=== PATIENT | male | born 1945 | race Caucasian/White ===

== ENCOUNTER 2017-01-10 09:10 | Inpatient (IN) | payer OTHER, MEDICAID ==
[~2017-01-10] VITALS: Ht 165.1 cm; Wt 80.0 kg
[2017-01-10] MEDS ORDERED: ONDANSETRON 4 MG INJ IV STA (09:59)
[2017-01-10] MEDS ORDERED: HYDROmorphONE 1 MG/ML SYG IV STA (09:59)
[2017-01-10 10:58] LABS: BASOPHILS % 0.1 % (0.0-2.0); EOSINOPHILS # 0.1 10^3/ul (0.0-0.5); EOSINOPHILS % 1.3 % (0.0-7.0); HEMATOCRIT 49.1 % (42.0-52.0); HEMOGLOBIN 15.9 g/dl (14.0-18.0); LYMPHOCYTES # 1.3 10^3/ul (0.8-2.9); MEAN CORPUSCULAR HEMOGLOBIN 26.7 pg (29.0-33.0); MEAN CORPUSCULAR HGB CONC 32.4 g/dl (32.0-37.0); MEAN CORPUSCULAR VOLUME 82.4 fl (82.0-101.0); MEAN PLATELET VOLUME 11.6 fl (7.4-10.4); MONOCYTE # 0.4 10^3/ul (0.3-0.9); MONOCYTES % 5.7 % (0.0-11.0); NEUTROPHIL # 4.9 10^3/ul (1.6-7.5); NEUTROPHILS % 73.8 % (39.0-77.0); PLATELET COUNT 200 10^3/UL (140-415); RED BLOOD COUNT 5.96 10^6/ul (4.70-6.10); RED CELL DISTRIBUTION WIDTH 14.2 % (11.5-14.5); WHITE BLOOD COUNT 6.7 10^3/ul (4.8-10.8)
[2017-01-10 11:24] LABS: ALBUMIN/GLOBULIN RATIO 1.08; BILIRUBIN,INDIRECT 0.4 mg/dl (0-1.1); BILIRUBIN,TOTAL 0.4 mg/dl (0.2-1.3); CALCIUM 8.9 mg/dl (8.4-10.2); CREATININE 0.79 mg/dl (0.61-1.24); POTASSIUM 4.2 mmol/L (3.5-5.1); TOTAL PROTEIN 7.7 g/dl (6.1-8.1)
[2017-01-10] MEDS ORDERED: SOD CHLORIDE 0.9% 100 ML ONE (12:02)
[2017-01-10] MEDS ORDERED: IOHEXOL 300MG/ML 150 ML BTL ONE (12:02)
--- NOTE | 2017-01-10 12:44 | RADRPT ---
PROCEDURE: CT Abdomen and Pelvis with contrast. CLINICAL INDICATION: Abdominal pain. TECHNIQUE: CT scan of the abdomen and pelvis with contrast was performed on a multi-detector high- resolution CT scanner. The patient was scanned following the uncomplicated intravenous administrati on of 100 cc of Omnipaque 300. Coronal and sagittal reformatted images were obtained from the axial source images. Images were reviewed on a high-resolution PACS workstation. The total exam CTDI equa ls 14.48 mGy and the total exam DLP equals 966.58 mGy-cm. One or more of the following dose reduction techniques were used: Automated exposure control. Adjustment of the mA and/or kV according to patient size. Use of iterative reconstruction technique. COMPARISON: None. FINDINGS: CT abdomen: The lung bases are remarkable for subsegmental atelectasis. The heart size is normal, without peric ardial thickening or effusion. The liver is normal in size and density without focal mass or intrah epatic biliary dilatation. The spleen is normal in size and homogeneous in density. The stomach is partially collapsed, but is grossly unremarkable. The pancreas as visualized is normal. The gallb ladder is remarkable for sub centimeter gallstones. There is no evidence for biliary dilatation. T he adrenal glands are symmetric and normal. The kidneys are symmetrically unremarkable as well. No renal calculus or obstructive uropathy or mass lesion is seen. There is approximately 2 cm exophyti c cortical cyst in the lower pole right kidney. The aorta is of normal caliber. Aortic vascular calcifications are present. There is no retroperit kennedy lymphadenopathy. The rohit hepatis region is clear. There is a small hiatal hernia. There is a tiny fat containing periumbilical hernia. There is abnormal wall thickening of the descending colon and proximal sigmoid colon with surroundin g inflammatory changes in keeping with colitis. Multiple foci of free air is seen in the left hemiab domen concerning for perforation. There is a left anterior abdominal wall hernia containing multipl e loops of small bowel with no evidence of bowel obstruction. There is small intraperitoneal free f luid. There are postsurgical changes of prior sigmoidectomy with anastomosis. CT pelvis: The small bowel loops situated within the pelvis are unremarkable. The pelvic organs are normal. T he pelvic sidewalls and inguinal regions are clear. No mass, lymphadenopathy, or free fluid is se en. No acute inflammation is seen. The bladder is normal. The surrounding osseous structures are u nremarkable. No osteolytic or osteoblastic lesion is detected. A call report was made to CONTINUOUS TOWEL ROLLERONEL Berg at 01/10/2017 12:36:18 PM following completion of the examinati on. IMPRESSION: 1. Abnormal wall thickening of the descending and proximal sigmoid colon with surrounding inflammato ry changes in keeping with colitis. Multiple foci of gas are seen in the left hemiabdomen concernin g for perforation. Sigmoid anastomosis. Inflammatory changes are also seen around the small bowel l oops in the left hemiabdomen. 2. Left anterior abdominal wall hernia containing multiple loops of small bowel without evidence of obstruction. 3. Small volume intraperitoneal free fluid. 4. Fat containing tiny periumbilical hernia. 5. Small hiatal hernia. 6. Cholelithiasis without evidence of acute cholecystitis. 7. Scattered aortoiliac atherosclerosis. 8. Fat containing right inguinal hernia. RPTAT: BB .Phoebe Madrigal MD, MD Date Time Electronically viewed and signed by .Phoebe Madrigal MD, on 01/10/2017 12:44 .O/
[2017-01-10] MEDS ORDERED: ERTAPENEM SODIUM 1 GM in SOD CHLORIDE 0.9% 100 ML IVPB ONE (13:00)
--- NOTE | 2017-01-10 13:08 | ERA ---
ER Documentation Chief Complaint Date/Time DATE: 01/10/17 TIME: 13:05 Chief Complaint ABD PAIN PERIUMBILICAL SINCE THIS MORNING. NO N/V. CONSTIPATED PER PT HPI This is a 71-year-old man who has a history of chronic abdominal pain and constipation and diabetes. 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 He does not know what they did remove lots of his large intestine. Patient stated that yesterday he was having a bowel movement in the evening and he said he was pushing his stool out and he felt a pop in his left abdomen. Since that time has had progressive worsening of pain described as sharp and constant in the left lower quadrant he has had no vomiting diarrhea no bloody stool no fever no hematuria or dysuria ROS All systems reviewed and are negative except as per history of present illness. Medications Home Meds No Active Prescriptions or Reported Meds Allergies Allergies: Coded Allergies: No Known Allergy (Unverified , 01/10/17) PMhx/Soc Medical and Surgical Hx: Unable to obtain Hx Alcohol Use: Yes Hx Substance Use: No Hx Tobacco Use: No Smoking Status: Never smoker FmHx Family History: No coronary disease Physical Exam Vitals Vital Signs Date Time Temp Pulse Resp B/P Pulse Ox O2 Delivery O2 Flow Rate FiO2 01/10/17 11:19 98.1 95 20 120/68 94 Nasal Cannula 2.0 01/10/17 09:15 98.1 62 20 146/87 99 Physical Exam Const: Well-developed, well-nourished Head: Atraumatic, normocephalic Eyes: Normal Conjunctiva, PERRLA, EOMI, normal sclera, no nystagmus ENT: Normal External Ears, Nose and Mouth, moist mucus membranes. Neck: Full range of motion. No meningismus, no lymphadenopathy. Resp: Clear to auscultation bilaterally, no wheezing, rhonchi, rales Cardio: Regular rate and rhythm, no murmurs, S1 S2 present Abd: Soft, diffuse moderate tenderness with severe tenderness in the left lower abdomen and periumbilical region, non distended. Normal bowel sounds , positive guarding with localized left rebound, no pulsitile abdominal masses or bruits Skin: No petechiae or rashes, no ecchymosis , no maculopapular rash Back: No midline or flank tenderness Ext: No cyanosis, or edema, FROM x 4, normal inspection, neurovascularly intact x 4 Neur: Awake and alert, STR 5/5 x 4, sensation intact x 4, no focal findings, cerebellum intact Psych: Normal Mood and Affect Result Diagram: 01/10/17 1000 01/10/17 1000 Results 24 hrs Laboratory Tests Test 01/10/17 10:00 White Blood Count 6.710^3/ul Red Blood Count 5.9610^6/ul Hemoglobin 15.9g/dl Hematocrit 49.1% Mean Corpuscular Volume 82.4fl Mean Corpuscular Hemoglobin 26.7pg Mean Corpuscular Hemoglobin Concent 32.4g/dl Red Cell Distribution Width 14.2% Platelet Count 87124^3/UL Mean Platelet Volume 11.6fl Neutrophils % 73.8% Lymphocytes % 19.0% Monocytes % 5.7% Eosinophils % 1.3% Basophils % 0.1% Nucleated Red Blood Cells % 0.0/100WBC Neutrophils # 4.910^3/ul Lymphocytes # 1.310^3/ul Monocytes # 0.410^3/ul Eosinophils # 0.110^3/ul Basophils # 0.010^3/ul Nucleated Red Blood Cells # 0.010^3/ul Sodium Level 145mmol/L Potassium Level 4.2mmol/L Chloride Level 100mmol/L Carbon Dioxide Level 27mmol/L Anion Gap 22 Blood Urea Nitrogen 11mg/dl Creatinine 0.79mg/dl Glucose Level 100mg/dl Calcium Level 8.9mg/dl Total Bilirubin 0.4mg/dl Direct Bilirubin 0.00mg/dl Indirect Bilirubin 0.4mg/dl Aspartate Amino Transf (AST/SGOT) 28IU/L Alanine Aminotransferase (ALT/SGPT) 33IU/L Alkaline Phosphatase 82IU/L Total Protein 7.7g/dl Albumin 4.0g/dl Globulin 3.70g/dl Albumin/Globulin Ratio 1.08 Lipase 65U/L Current Medications Medications (Trade) Dose Ordered Sig/Gianni Route PRN Reason Start Time Stop Time Status Last Admin Dose Admin Hydromorphone HCl (Dilaudid) 1 mg ONCE STAT IV 01/10/17 09:59 01/10/17 10:02 DC 01/10/17 10:51 Ondansetron HCl (Zofran Inj) 4 mg ONCE STAT IV 01/10/17 09:59 01/10/17 10:02 DC 01/10/17 10:51 IV Flush 10 ml 10 ml STK-MED ONCE .ROUTE 01/10/17 12:02 01/10/17 12:03 DC 01/10/17 12:34 Sodium Chloride (NS) 100 ml @ ud STK-MED ONCE .ROUTE 01/10/17 12:02 01/10/17 12:03 DC 01/10/17 12:34 Iohexol 150 ml 150 ml STK-MED ONCE .ROUTE 01/10/17 12:02 01/10/17 12:03 DC 01/10/17 12:34 Ertapenem/Sodium Chloride (Invanz/NS) 100 ml @ 200 mls/hr ONCE ONCE IVPB 01/10/17 13:00 01/10/17 13:29 Procedures/MDM PROCEDURE: CT Abdomen and Pelvis with contrast. CLINICAL INDICATION: Abdominal pain. TECHNIQUE: CT scan of the abdomen and pelvis with contrast was performed on a multi-detector high-resolution CT scanner. The patient was scanned following the uncomplicated intravenous administration of 100 cc of Omnipaque 300. Coronal and sagittal reformatted images were obtained from the axial source images. Images were reviewed on a high-resolution PACS workstation. The total exam CTDI equals 14.48 mGy and the total exam DLP equals 966.58 mGy-cm. One or more of the following dose reduction techniques were used: Automated exposure control. Adjustment of the mA and/or kV according to patient size. Use of iterative reconstruction technique. COMPARISON: None. FINDINGS: CT abdomen: The lung bases are remarkable for subsegmental atelectasis. The heart size is normal, without pericardial thickening or effusion. The liver is normal in size and density without focal mass or intrahepatic biliary dilatation. The spleen is normal in size and homogeneous in density. The stomach is partially collapsed, but is grossly unremarkable. The pancreas as visualized is normal. The gallbladder is remarkable for sub centimeter gallstones. There is no evidence for biliary dilatation. The adrenal glands are symmetric and normal. The kidneys are symmetrically unremarkable as well. No renal calculus or obstructive uropathy or mass lesion is seen. There is approximately 2 cm exophytic cortical cyst in the lower pole right kidney. The aorta is of normal caliber. Aortic vascular calcifications are present. There is no retroperitoneal lymphadenopathy. The rohit hepatis region is clear. There is a small hiatal hernia. There is a tiny fat containing periumbilical hernia. There is abnormal wall thickening of the descending colon and proximal sigmoid colon with surrounding inflammatory changes in keeping with colitis. Multiple foci of free air is seen in the left hemiabdomen concerning for perforation. There is a left anterior abdominal wall hernia containing multiple loops of small bowel with no evidence of bowel obstruction. There is small intraperitoneal free fluid. There are postsurgical changes of prior sigmoidectomy with anastomosis. CT pelvis: The small bowel loops situated within the pelvis are unremarkable. The pelvic organs are normal. The pelvic sidewalls and inguinal regions are clear. No mass, lymphadenopathy, or free fluid is seen. No acute inflammation is seen. The bladder is normal. The surrounding osseous structures are unremarkable. No osteolytic or osteoblastic lesion is detected. A call report was made to FILTR[employer] OPERATORONEL Berg at 01/10/2017 12:36:18 PM following completion of the examination. IMPRESSION: 1. Abnormal wall thickening of the descending and proximal sigmoid colon with surrounding inflammatory changes in keeping with colitis. Multiple foci of gas are seen in the left hemiabdomen concerning for perforation. Sigmoid anastomosis. Inflammatory changes are also seen around the small bowel loops in the left hemiabdomen. 2. Left anterior abdominal wall hernia containing multiple loops of small bowel without evidence of obstruction. 3. Small volume intraperitoneal free fluid. 4. Fat containing tiny periumbilical hernia. 5. Small hiatal hernia. 6. Cholelithiasis without evidence of acute cholecystitis. 7. Scattered aortoiliac atherosclerosis. 8. Fat containing right inguinal hernia. RPTAT: BB .Phoebe Madrigal MD, Date Time Electronically viewed and signed by .Phoebe Madrigal MD, on 01/10/2017 12:44 .O/ CC: ANKIT SY DO Patient received 1 g of Invanz. I paged general surgery Dr. Saldivar for consultation. We will admit for diverticulitis with perforation Departure Diagnosis: Primary Impression: Bowel perforation Additional Impression: Diverticulitis Qualified Code: K57.20 - Diverticulitis of large intestine with perforation without bleeding Condition: ANKIT Rodriguez DO Jan 10, 2017 13:08
[2017-01-10] MEDS ORDERED: SOD CHLORIDE 0.9% 1,000 ML IV SCH (13:54)
[2017-01-10] MEDS ORDERED: ONDANSETRON 4 MG INJ IV PRN ×2 (14:00→15:00)
[2017-01-10] MEDS ORDERED: ACETAMINOPHEN 325 MG TAB PO PRN ×2 (14:00→15:00)
[2017-01-10] MEDS ORDERED: SOD CHLORIDE 0.9% 1,000 ML IV STA (14:11)
[2017-01-10 14:33] VITALS: TEMP 100.1
[2017-01-10] MEDS ORDERED: BISACODYL 10 MG SUPP PR PRN (15:00)
[2017-01-10] MEDS ORDERED: NACL 0.9% 3 ML SYG IV SCH (15:00)
[2017-01-10] MEDS ORDERED: ACETAMINOPHEN 650 MG SUPP PR PRN (15:00)
[2017-01-10] MEDS ORDERED: DOCUSATE SODIUM 100 MG CAP PO PRN (15:00)
[2017-01-10] MEDS ORDERED: MAGNESIUM HYDROXIDE 30ML CUP PO PRN (15:00)
--- NOTE | 2017-01-10 15:05 | HP ---
Date/Time of Note Date/Time of Note DATE: 01/10/17 TIME: 15:04 Assessment/Plan VTE Prophylaxis VTE Prophylaxis Intervention: SCD's Assessment/Plan Assessment/Plan 71-year-old male with: 1. Colitis, descending and proximal sigmoid colon, suspicion for left hemiabdomen perforated viscus. Patient still with severe pain. N.p.o., lactic acid pending, IV fluids, IV antibiotics. Surgical consult already requested in ER with Dr. Saldivar. Monitor closely, in case the patient needs surgical intervention, EKG and chest x-ray has been ordered. Patient denies any previous history of coronary artery disease, pulmonary disease, kidney disease. None of his present symptoms are indicative of any of those chronic illnesses. He may proceed with surgical intervention if needed 2. Hyperlipidemia, per history, check fasting lipid panel in a.m. Prophylaxis: SCDs for DVT prophylaxis, Protonix for GI prophylaxis. Disposition: IV antibiotics, n.p.o., awaiting surgical evaluation HPI/ROS Admit Date/Time Admit Date/Time Jan 10, 2017 at 13:57 Hx of Present Illness Chief complaint: Left lower quadrant abdominal pain History of presenting illness: This is a 71-year-old male who lives alone, history of hypercholesterolemia, previous abdominal surgery due to possible perforated viscus approximately 20 years ago, chronic constipation who presented to the emergency department with acute onset of left lower quadrant abdominal pain. Patient reports that he is usually constipated he was going to the bathroom early this morning at 4 AM, he was pushing to have a bowel movement apparently and he felt a "pop". Afterwards he started having severe left lower quadrant abdominal pain, at 9 AM he could not take it anymore he called the ambulance and came to the emergency department. Laboratory data were within normal but CAT scan of the abdomen and pelvis is showing significant colitis in the descending colon and proximal sigmoid colon and concerns for perforation in the left hemiabdomen. Patient is hemodynamically stable, lactic acid is pending. Patient was given 1 dose of ertapenem in ER, admitted to medical surgical bed with surgical consult pending. He is n.p.o., on IV fluids and IV antibiotics. ROS Constitutional: febrile Eyes: no complaints ENT: no complaints Respiratory: no complaints Cardiovascular: no complaints Gastrointestinal: constipation (Chronic), decreased appetite (Only eats once a day), pain (Left lower quadrant) Genitourinary: no complaints Musculoskeletal: no complaints Skin: no complaints Neurologic: no complaints Endocrine: no complaints Psychological: no complaints PMH/Family/Social Past Medical History Medical History: high cholesterol (Does not take medications) Past Surgical History Status post abdominal surgery, according to patient description secondary to perforated viscus, done approximately 20 years ago. Family History Significant Family History: no pertinent family hx Social History Alcohol Use: none (Patient quit 20 years ago, 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) Smoking Status: Never smoker Drug Use: none Exam/Review of Systems Vital Signs Vitals Vital Signs Date Time Temp Pulse Resp B/P Pulse Ox O2 Delivery O2 Flow Rate FiO2 01/10/17 14:33 100.1 100 20 132/74 91 Room Air 2.0 Exam Constitutional: alert, oriented, well developed Respiratory: clear to auscultation, normal air movement Cardiovascular: nl pulses, regular rate and rhythm Gastrointestinal: soft, tender (Left lower quadrant) Musculoskeletal: nl extremities to inspection, nl gait and stance Extremities: normal pulses, other (No edema, clubbing or cyanosis) Neurological: ACIDIZER WATER WELL II-XII intact, nl mental status, nl speech, nl strength Labs Result Diagram: 01/10/17 1000 01/10/17 1000 Medications Medications Current Medications Sodium Chloride (NS) 1,000 ml @ 125 mls/hr Q8H IV ; Start 01/10/17 at 14:44 Ondansetron HCl (Zofran Inj) 4 mg Q6H PRN IV NAUSEA AND/OR VOMITING; Start 04/18 at 15:00 Acetaminophen (Tylenol Tab) 650 mg Q6H PRN PO PAIN LEVEL 1-3 OR FEVER; Start at 15:00 Acetaminophen (Tylenol Supp) 650 mg Q6H PRN MS PAIN LEVEL 1-3 OR FEVER; Start 01/10/17 at 15:00 Morphine Sulfate (morphine) 2 mg Q4H PRN IV SEVERE PAIN LEVEL 7-10; Start 01/10 at 15:00 Docusate Sodium (Colace) 100 mg Q12H PRN PO CONSTIPATION; Start 01/10/17 at 15: 00 Magnesium Hydroxide (Milk Of Mag) 30 ml DAILY PRN PO CONSTIPATION; Start at 15:00 Bisacodyl (Dulcolax Supp) 10 mg DAILY PRN MS CONSTIPATION; Start 01/10/17 at 15 :00 Pantoprazole 40 mg 40 mg DAILY@06 IV ; Start 01/11/17 at 06:00 Meropenem/Sodium Chloride (Merrem 1 Gm/50 ml (Pmx)) 50 ml @ 100 mls/hr Q8 IVPB ; Start 01/10/17 at 22:00 Procedures Procedures PROCEDURE: CT Abdomen and Pelvis with contrast. CLINICAL INDICATION: Abdominal pain. TECHNIQUE: CT scan of the abdomen and pelvis with contrast was performed on a multi-detector high-resolution CT scanner. The patient was scanned following the uncomplicated intravenous administration of 100 cc of Omnipaque 300. Coronal and sagittal reformatted images were obtained from the axial source images. Images were reviewed on a high-resolution PACS workstation. The total exam CTDI equals 14.48 mGy and the total exam DLP equals 966.58 mGy-cm. One or more of the following dose reduction techniques were used: Automated exposure control. Adjustment of the mA and/or kV according to patient size. Use of iterative reconstruction technique. COMPARISON: None. FINDINGS: CT abdomen: The lung bases are remarkable for subsegmental atelectasis. The heart size is normal, without pericardial thickening or effusion. The liver is normal in size and density without focal mass or intrahepatic biliary dilatation. The spleen is normal in size and homogeneous in density. The stomach is partially collapsed, but is grossly unremarkable. The pancreas as visualized is normal. The gallbladder is remarkable for sub centimeter gallstones. There is no evidence for biliary dilatation. The adrenal glands are symmetric and normal. The kidneys are symmetrically unremarkable as well. No renal calculus or obstructive uropathy or mass lesion is seen. There is approximately 2 cm exophytic cortical cyst in the lower pole right kidney. The aorta is of normal caliber. Aortic vascular calcifications are present. There is no retroperitoneal lymphadenopathy. The rohit hepatis region is clear. There is a small hiatal hernia. There is a tiny fat containing periumbilical hernia. There is abnormal wall thickening of the descending colon and proximal sigmoid colon with surrounding inflammatory changes in keeping with colitis. Multiple foci of free air is seen in the left hemiabdomen concerning for perforation. There is a left anterior abdominal wall hernia containing multiple loops of small bowel with no evidence of bowel obstruction. There is small intraperitoneal free fluid. There are postsurgical changes of prior sigmoidectomy with anastomosis. CT pelvis: The small bowel loops situated within the pelvis are unremarkable. The pelvic organs are normal. The pelvic sidewalls and inguinal regions are clear. No mass, lymphadenopathy, or free fluid is seen. No acute inflammation is seen. The bladder is normal. The surrounding osseous structures are unremarkable. No osteolytic or osteoblastic lesion is detected. A call report was made to [employer] II THERM[facility] CUTTERONEL Berg at 01/10/2017 12:36:18 PM following completion of the examination. IMPRESSION: 1. Abnormal wall thickening of the descending and proximal sigmoid colon with surrounding inflammatory changes in keeping with colitis. Multiple foci of gas are seen in the left hemiabdomen concerning for perforation. Sigmoid anastomosis. Inflammatory changes are also seen around the small bowel loops in the left hemiabdomen. 2. Left anterior abdominal wall hernia containing multiple loops of small bowel without evidence of obstruction. 3. Small volume intraperitoneal free fluid. 4. Fat containing tiny periumbilical hernia. 5. Small hiatal hernia. 6. Cholelithiasis without evidence of acute cholecystitis. 7. Scattered aortoiliac atherosclerosis. 8. Fat containing right inguinal hernia. RPTAT: BB .Phoebe Madrigal MD, MD Date Time Electronically viewed and signed by .Phoebe Madrigal MD, on 01/10/2017 12:44 MÓNICA OLGUIN Jan 10, 2017 15:05
[2017-01-10 15:09] VITALS: BP 135/73; RESP 18
[2017-01-10 15:27] VITALS: Ht 165.1 cm; Wt 80.0 kg
[2017-01-10] MEDS: SOD CHLORIDE 0.9% 1,000 ML IV SCH ×2 (15:34→21:36)
[2017-01-10 15:50] LABS: INR 0.99; PARTIAL THROMBOPLASTIN TIME 28.6 Sec (25.0-35.0); PROTIME 13.1 Sec (12.2-14.2)
[2017-01-10] MEDS: PANTOPRAZOLE 40 MG INJ IV SCH (18:12)
--- NOTE | 2017-01-10 18:16 | CONS ---
Date/Time of Note Date/Time of Note DATE: 01/10/17 TIME: 17:56 Assessment/Plan Assessment/Plan Chief Complaint/Hosp Course 1. Abdominal pain: concern for perforated viscus: left hemiabdomen ; min temp, tachycardia; abdomen soft mod distended -close monitoring; at this point does not require emergent surgical intervention -iv abx 2. Constipation -optimize bowel regimen 3. Multiple Hernias: Left Lat abdominal wall, perimbulical, hiatal, Right inguinal: all without pain or discomfort -possible eventual surgical repair -monitor 4. Overweight -eventual weight loss Patient seen and examined in collaboration with Dr. Dave Saldivar. Thank you. Problems: Consultation Date/Type/Reason Admit Date/Time Jan 10, 2017 at 13:57 Date of Consultation: Jan 10, 2017 Type of Consultation: surgical Reason for Consultation Possible perforated viscus Referring Provider: MÓNICA OLGUIN of Present Illness Pavel Khan is a 71 yo man who presents to the ED with severe abdominal pain that began this morning. He has history of constipation, only having a bowel movement weekly. He recounts hearing a "pop" while attempting to have a bowel movement. The pain is more severe in his left lower quadrant but is also in his right lower quadrant. He denies nausea, vomiting, fevers, chills, sob, cough and cp. Ct abdomen showed abnormal wall thickening of the descending and proximal sigmoid colon with surrounding inflammatory changes in keeping with colitis. Multiple foci of gas are seen in the left hemiabdomen concerning for perforation. Surgical consult was called to evaluate. Eyes: No visual change ENT: No congestion, No sore throat Respiratory: No cough, No shortness of breath Cardiovascular: chest pain, No lightheadedness, No no complaints, No palpitations Gastrointestinal: constipation (Chronic), decreased appetite (Only eats once a day), pain (bilat lower quadrant worse on left) Genitourinary: No dysuria Musculoskeletal: no complaints, No back pain Skin: no complaints Neurologic: no complaints, No confusion, No dizziness Psychological: anxiety Past Medical History multiple hernia overweight Medical History: high cholesterol Past Surgical History open abdominal surgery (particulars unknown to patient) Family History Significant Family History: other (noncontributory) Social History Alcohol Use: none (Patient quit 20 years ago, 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) Smoking Status: Never smoker Drug Use: none Exam/Review of Systems Vital Signs Vitals Vital Signs Date Time Temp Pulse Resp B/P Pulse Ox O2 Delivery O2 Flow Rate FiO2 01/10/17 15:09 99.0 98 18 135/73 92 01/10/17 14:33 Room Air 2.0 Exam Constitutional: alert, oriented Psych: anxiety Head: atraumatic, normocephalic Eyes: nl lids, nl sclera ENMT: mucosa pink and moist, nl nasal mucosa & septum Neck: non-tender, supple Respiratory: normal air movement, No congested cough Cardiovascular: nl pulses, regular rate and rhythm Gastrointestinal: bowel sounds (hypoactive), distended (mod), other (multiple hernias (umbilical, left abdominal wall)), surgical scars, tender Genitourinary - Male: other Musculoskeletal: nl extremities to inspection Extremities: normal pulses, No edema Neurological: nl mental status, nl speech, nl strength Skin: No ecchymosis Results Result Diagram: 01/10/17 1000 01/10/17 1000 Results 24 hrs Laboratory Tests Test 01/10/17 10:00 01/10/17 13:40 01/10/17 15:51 White Blood Count 6.7 Red Blood Count 5.96 Hemoglobin 15.9 Hematocrit 49.1 Mean Corpuscular Volume 82.4 Mean Corpuscular Hemoglobin 26.7 L Mean Corpuscular Hemoglobin Concent 32.4 Red Cell Distribution Width 14.2 Platelet Count 200 Mean Platelet Volume 11.6 H Neutrophils % 73.8 Lymphocytes % 19.0 Monocytes % 5.7 Eosinophils % 1.3 Basophils % 0.1 Nucleated Red Blood Cells % 0.0 Neutrophils # 4.9 Lymphocytes # 1.3 Monocytes # 0.4 Eosinophils # 0.1 Basophils # 0.0 Nucleated Red Blood Cells # 0.0 Sodium Level 145 H Potassium Level 4.2 Chloride Level 100 Carbon Dioxide Level 27 Anion Gap 22 H Blood Urea Nitrogen 11 Creatinine 0.79 Glucose Level 100 Calcium Level 8.9 Total Bilirubin 0.4 Direct Bilirubin 0.00 Indirect Bilirubin 0.4 Aspartate Amino Transf (AST/SGOT) 28 Alanine Aminotransferase (ALT/SGPT) 33 Alkaline Phosphatase 82 Total Protein 7.7 Albumin 4.0 Globulin 3.70 H Albumin/Globulin Ratio 1.08 Lipase 65 Prothrombin Time 13.1 Prothrombin Time Ratio 1.0 INR International Normalized Ratio 0.99 Activated Partial Thromboplast Time 28.6 Lactic Acid Level 1.9 Medications Medications Current Medications Sodium Chloride (NS) 1,000 ml @ 125 mls/hr Q8H IV Last administered on t 15:34; Admin Dose 125 MLS/HR; Start 01/10/17 at 14:44 Ondansetron HCl (Zofran Inj) 4 mg Q6H PRN IV NAUSEA AND/OR VOMITING; Start 04/18 at 15:00 Acetaminophen (Tylenol Tab) 650 mg Q6H PRN PO PAIN LEVEL 1-3 OR FEVER; Start at 15:00 Acetaminophen (Tylenol Supp) 650 mg Q6H PRN [place] PAIN LEVEL 1-3 OR FEVER; Start 01/10/17 at 15:00 Morphine Sulfate (morphine) 2 mg Q4H PRN IV SEVERE PAIN LEVEL 7-10; Start 01/10 at 15:00 Docusate Sodium (Colace) 100 mg Q12H PRN PO CONSTIPATION; Start 01/10/17 at 15: 00 Magnesium Hydroxide (Milk Of Mag) 30 ml DAILY PRN PO CONSTIPATION; Start at 15:00 Bisacodyl 10 mg 10 mg DAILY PRN [place] CONSTIPATION; Start 01/10/17 at 15:00 Meropenem/Sodium Chloride (Merrem 1 Gm/50 ml (Pmx)) 50 ml @ 100 mls/hr Q8 IVPB ; Start 01/10/17 at 22:00 Pantoprazole (Protonix Iv) 40 mg BID@06,18 IV ; Start 01/10/17 at 18:00 ANNA CHANG NP Jan 10, 2017 18:07 Meropenem/Sodium Chloride (Merrem 1 Gm/50 ml (Pmx)) 50 ml @ 100 mls/hr Q8 IVPB ; Start 01/10/17 at 22:00 Pantoprazole (Protonix Iv) 40 mg BID@06,18 IV ; Start 01/10/17 at 18:00 ANNA CHANG NP Jan 10, 2017 18:07
--- NOTE | 2017-01-10 18:55 | RADRPT ---
PROCEDURE: XR Chest. CLINICAL INDICATION: Chest pain TECHNIQUE: Single frontal view of the chest was obtained COMPARISON: None FINDINGS: There are low lung volumes. The cardiac silhouette is mildly enlarged. There are atherosclerotic calcifications of the aorta. There is evidence of mild pulmonary vascular congestion. Ill-defined opacities at both lung bases which likely represents atelectasis and / or scarring. Inf ectious component cannot be completely excluded. No pneumothorax or significant pleural effusion is seen. There are degenerative changes of the visualized spine. IMPRESSION: 1. Ill-defined bibasilar opacities, likely representing atelectasis and / or scarring. An infectiou s component cannot be completely excluded, but is considered less likely. 2. Mild cardiomegaly. 3. Mild pulmonary vascular congestion. RPTAT: QQ Physician Kuldeep Date Time Electronically viewed and signed by Lm Graham Physician on 01/10/2017 18:55 JAYLYN/
[2017-01-10 20:02] VITALS: BP 127/63; RESP 22
[2017-01-10] MEDS: MEROPENEM 1 GM/50ML(PMX) 50 ML IVPB SCH (21:38)
[2017-01-11] MEDS: morphine 2 MG INJ IV PRN (02:51)
[2017-01-11 03:00] VITALS: BP 126/75; RESP 19
[2017-01-11] MEDS: PANTOPRAZOLE 40 MG INJ IV SCH ×2 (05:28→18:52)
[2017-01-11] MEDS: SOD CHLORIDE 0.9% 1,000 ML IV SCH ×3 (05:28→22:31)
[2017-01-11] MEDS: MEROPENEM 1 GM/50ML(PMX) 50 ML IVPB SCH ×3 (05:28→22:31)
[2017-01-11 05:54] LABS: ABNORMAL IP MESSAGE 1; BASOPHILS % 0.1 % (0.0-2.0); HEMATOCRIT 43.3 % (42.0-52.0); LYMPHOCYTES # 0.5 10^3/ul (0.8-2.9); LYMPHOCYTES % 7.1 % (15.0-51.0); MEAN CORPUSCULAR HGB CONC 32.3 g/dl (32.0-37.0); MEAN CORPUSCULAR VOLUME 80.5 fl (82.0-101.0); MONOCYTE # 0.6 10^3/ul (0.3-0.9); MONOCYTES % 7.4 % (0.0-11.0); NEUTROPHIL # 6.4 10^3/ul (1.6-7.5); NEUTROPHILS % 85.1 % (39.0-77.0); PLATELET COUNT 165 10^3/UL (140-415); RED BLOOD COUNT 5.38 10^6/ul (4.70-6.10); RED CELL DISTRIBUTION WIDTH 14.6 % (11.5-14.5); WHITE BLOOD COUNT 7.5 10^3/ul (4.8-10.8)
[2017-01-11 05:55] LABS: CHOL/HDL RATIO 3.5 RATIO
[2017-01-11 05:56] LABS: ALBUMIN 3.1 g/dl (3.3-4.9); ALBUMIN/GLOBULIN RATIO 1.06; BILIRUBIN,INDIRECT 1.2 mg/dl (0-1.1); BILIRUBIN,TOTAL 1.2 mg/dl (0.2-1.3); CALCIUM 7.9 mg/dl (8.4-10.2); CREATININE 0.81 mg/dl (0.61-1.24); MAGNESIUM 1.5 mg/dl (1.7-2.5); PHOSPHORUS 2.1 mg/dl (2.5-4.9); POTASSIUM 3.5 mmol/L (3.5-5.1)
[2017-01-11] MEDS ORDERED: PANTOPRAZOLE 40 MG INJ IV SCH (06:00)
[2017-01-11 07:58] VITALS: BP 103/56; RESP 20
--- NOTE | 2017-01-11 11:17 | RADRPT ---
Vent Rate: 99 bpm RR Interval: 0 msec AL Interval: 176 msec QRS Duration: 82 msec QT Interval: 338 msec QTC Interval: 433 msec P-R-T [place]: 71 - 67 - 59 degrees Normal sinus rhythm Normal ECG Electronically Signed By: Patrick Henson [id number]
[2017-01-11 11:32] LABS: METAMYELOCYTES %M 1 % (0-0)
[2017-01-11 11:34] LABS: PLATELET ESTIMATE NORMAL; POIKILOCYTOSIS 2+ (0-0)
--- NOTE | 2017-01-11 11:50 | PN ---
Date/Time of Note Date/Time of Note DATE: 01/11/17 TIME: 11:40 Assessment/Plan Lines/Catheters IV Catheter Type (from Nrs): Peripheral IV Assessment/Plan Chief Complaint/Hosp Course 1. Abdominal pain: concern for perforated viscus: left hemiabdomen ; min temp, tachycardia; abdomen soft mod distended (unchanged from yesterday); wbc normal -close monitoring; at this point does not require emergent surgical intervention -iv abx 2. Constipation -optimize bowel regimen 3. Multiple Hernias: Left Lat abdominal wall, perimbulical, hiatal, Right inguinal: all without pain or discomfort -possible eventual surgical repair -monitor 4. Overweight -eventual weight loss 5. Hypocalcemia with hypoalbuminemia:: likely nutritional -nutrition optimization 6. Hypomagnesemia -electrolyte optimization Patient seen and examined in collaboration with Dr. Dave Saldivar. Thank you. Problems: Subjective 24 Hr Interval Summary Feeling ok. Abdominal pain improved. Min feeling of fullness in abdomen. No nausea, vomiting, dysuria, fevers, chills, tachycardia, cp, palpitations, cough. Exam/Review of Systems Vital Signs Vitals Vital Signs Date Time Temp Pulse Resp B/P Pulse Ox O2 Delivery O2 Flow Rate FiO2 01/11/17 07:58 98.4 91 20 103/56 91 01/10/17 14:33 Room Air 2.0 Intake and Output 01/10/17 01/10/17 01/11/17 15:00 23:00 07:00 Intake Total 1050 ml 925 ml Output Total 780 ml Balance 1050 ml 145 ml Exam Free Text/Dictation Constitutional: alert, oriented Psych: anxiety improved Head: atraumatic, normocephalic Eyes: nl lids, nl sclera ENMT: mucosa pink and moist, nl nasal mucosa & septum Neck: non-tender, supple Respiratory: normal air movement, No congested cough Cardiovascular: nl pulses, regular rate and rhythm Gastrointestinal: bowel sounds (hypoactive), distended (mod-same as yesterday, no increase in distention), other (multiple hernias (umbilical, left abdominal wall)), surgical scars, tender Genitourinary - Male: other Musculoskeletal: nl extremities to inspection Extremities: normal pulses, No edema Neurological: nl mental status, nl speech, nl strength Skin: No ecchymosis Results Result Diagram: 01/11/17 0503 01/11/17 0507 ANNA CHANG NP Jan 11, 2017 11:49
[2017-01-11] MEDS ORDERED: NA PHOSPHATE/BIPHOS 133 ML ENEMA PR PRN (12:00)
[2017-01-11] MEDS ORDERED: MAGNESIUM SULFATE 2 GM/50 ML 50 ML IVPB ONE (12:00)
--- NOTE | 2017-01-11 12:04 | PN ---
Date/Time of Note Date/Time of Note DATE: 01/11/17 TIME: 11:54 Assessment/Plan VTE Prophylaxis VTE Prophylaxis Intervention: SCD's Lines/Catheters IV Catheter Type (from Nrs): Peripheral IV Assessment/Plan Assessment/Plan 71-year-old male with: 1. Colitis, descending and proximal sigmoid colon, suspicion for left radha- abdomen perforated viscus. Patient still with pain. Lactic acid within normal Strict n.p.o., continue IV fluids and IV antibiotics. General surgery following. Monitor closely, in case the patient needs surgical intervention, EKG and chest x-ray within normal. Patient denies any previous history of coronary artery disease, pulmonary disease, kidney disease. None of his present symptoms are indicative of any of those chronic illnesses. He may proceed with surgical intervention if needed. 2. Hyperlipidemia, per history, but fasting lipid panel this a.m. within normal Prophylaxis: SCDs for DVT prophylaxis, Protonix for GI prophylaxis. Disposition: IV antibiotics, n.p.o., IV fluids, conservative management for now with general surgery following. Subjective 24 Hr Interval Summary Free Text/Dictation Patient still having abdominal pain especially left lower quadrant, he also feels distended. Still strict n.p.o. given suspected perforation on CAT scan, therefore will use Dulcolax suppository and Fleet enemas for management of constipation. Continue IV antibiotics and IV fluids. Surgery following, for now conservative management and observation. Exam/Review of Systems Vital Signs Vitals Vital Signs Date Time Temp Pulse Resp B/P Pulse Ox O2 Delivery O2 Flow Rate FiO2 01/11/17 07:58 98.4 91 20 103/56 91 01/10/17 14:33 Room Air 2.0 Intake and Output 01/10/17 01/10/17 01/11/17 15:00 23:00 07:00 Intake Total 1050 ml 925 ml Output Total 780 ml Balance 1050 ml 145 ml Exam Constitutional: alert, oriented, well developed Respiratory: clear to auscultation, normal air movement Cardiovascular: nl pulses, regular rate and rhythm Gastrointestinal: distended (Slightly especially lower abdomen), soft, tender ( Left lower quadrant greater than right lower quadrant) Musculoskeletal: nl extremities to inspection Extremities: normal pulses, other (No edema, clubbing or cyanosis) Neurological: BOTTOM CEMENTER II-XII intact, nl mental status, nl speech, nl strength Results Result Diagram: 8/12/17 0507 01/11/17 0507 Results 24 hrs Laboratory Tests Test 01/10/17 13:40 01/10/17 15:51 01/11/17 05:07 Prothrombin Time 13.1 Prothrombin Time Ratio 1.0 INR International Normalized Ratio 0.99 Activated Partial Thromboplast Time 28.6 Lactic Acid Level 1.9 White Blood Count 7.5 Red Blood Count 5.38 Hemoglobin 14.0 Hematocrit 43.3 Mean Corpuscular Volume 80.5 L Mean Corpuscular Hemoglobin 26.0 L Mean Corpuscular Hemoglobin Concent 32.3 Red Cell Distribution Width 14.6 H Platelet Count 165 Mean Platelet Volume 11.0 H Neutrophils % 85.1 H Segmented Neutrophils % (Manual) 49 Band Neutrophils % (Manual) 36 H Lymphocytes % 7.1 L Lymphocytes % (Manual) 11 L Monocytes % 7.4 Monocytes % (Manual) 3 Eosinophils % 0.0 Basophils % 0.1 Metamyelocytes % (manual) 1 H Nucleated Red Blood Cells % 0.0 Neutrophils # 6.4 Neutrophils # (Manual) 3.9 Band Neutrophils # 2.7 H Absolute Lymphocytes (Manual) 0.8 Lymphocytes # 0.5 L Monocytes # 0.6 Absolute Monocytes (Manual) 0.2 L Eosinophils # 0.0 Basophils # 0.0 Metamyelocytes # 0.0 Nucleated Red Blood Cells # 0.0 Platelet Estimate NORMAL Poikilocytosis 2+ Ovalocytes FEW Sodium Level 141 Potassium Level 3.5 Chloride Level 103 Carbon Dioxide Level 23 Anion Gap 19 H Blood Urea Nitrogen 14 Creatinine 0.81 Glucose Level 117 Calcium Level 7.9 L Phosphorus Level 2.1 L Magnesium Level 1.5 L Total Bilirubin 1.2 Direct Bilirubin 0.00 Indirect Bilirubin 1.2 H Aspartate Amino Transf (AST/SGOT) 24 Alanine Aminotransferase (ALT/SGPT) 29 Alkaline Phosphatase 37 #L Total Protein 6.0 #L Albumin 3.1 L Globulin 2.90 Albumin/Globulin Ratio 1.06 Triglycerides Level 93 Cholesterol Level 123 LDL Cholesterol, Calculated 69 HDL Cholesterol 35 Cholesterol/HDL Ratio 3.5 Medications Medications Current Medications Sodium Chloride (NS) 1,000 ml @ 125 mls/hr Q8H IV Last administered on t 05:28; Admin Dose 125 MLS/HR; Start 01/10/17 at 14:44 Ondansetron HCl (Zofran Inj) 4 mg Q6H PRN IV NAUSEA AND/OR VOMITING Last administered on 01/11/17 02:45; Admin Dose 4 MG; Start 01/10/17 at 15:00 Acetaminophen (Tylenol Tab) 650 mg Q6H PRN PO PAIN LEVEL 1-3 OR FEVER; Start at 15:00 Acetaminophen (Tylenol Supp) 650 mg Q6H PRN [place] PAIN LEVEL 1-3 OR FEVER; Start 01/10/17 at 15:00 Morphine Sulfate (morphine) 2 mg Q4H PRN IV SEVERE PAIN LEVEL 7-10 Last administered on 01/11/17 02:51; Admin Dose 2 MG; Start 01/10/17 at 15:00 Docusate Sodium (Colace) 100 mg Q12H PRN PO CONSTIPATION; Start 01/10/17 at 15: 00 Magnesium Hydroxide (Milk Of Mag) 30 ml DAILY PRN PO CONSTIPATION; Start at 15:00 Bisacodyl 10 mg 10 mg DAILY PRN [place] CONSTIPATION; Start 01/10/17 at 15:00 Meropenem/Sodium Chloride (Merrem 1 Gm/50 ml (Pmx)) 50 ml @ 100 mls/hr Q8 IVPB Last administered on 01/11/17 05:28; Admin Dose 100 MLS/HR; Start 01/10/17 at 22:00 Pantoprazole (Protonix Iv) 40 mg BID@06,18 IV Last administered on 01/11/17 05 :28; Admin Dose 40 MG; Start 01/10/17 at 18:00 MÓNICA OLGUIN Jan 11, 2017 12:04
[2017-01-11 12:05] LABS: BURR CELLS 1+ (0-0); GIANT THROMBO% (M) 3 % (0-0); MONOCYTES % (M) 4 % (0-11); OVALOCYTES 1+ (0-0)
[2017-01-11] MEDS ORDERED: POTASSIUM PHOSPHATE 30 MM in SOD CHLORIDE 0.9% 250 ML IVPB ONE (13:30)
[2017-01-11 16:13] VITALS: BP 119/61; RESP 20
[2017-01-11 20:12] VITALS: BP 127/67; RESP 20
[2017-01-12 02:43] VITALS: BP 122/59; RESP 20
[2017-01-12 05:02] LABS: BASOPHILS % 0.3 % (0.0-2.0); EOSINOPHILS % 0.1 % (0.0-7.0); HEMATOCRIT 40.6 % (42.0-52.0); HEMOGLOBIN 13.2 g/dl (14.0-18.0); LYMPHOCYTES # 0.8 10^3/ul (0.8-2.9); LYMPHOCYTES % 10.5 % (15.0-51.0); MEAN CORPUSCULAR HEMOGLOBIN 26.2 pg (29.0-33.0); MEAN CORPUSCULAR HGB CONC 32.5 g/dl (32.0-37.0); MEAN CORPUSCULAR VOLUME 80.7 fl (82.0-101.0); MEAN PLATELET VOLUME 11.1 fl (7.4-10.4); MONOCYTE # 0.3 10^3/ul (0.3-0.9); MONOCYTES % 4.7 % (0.0-11.0); NEUTROPHIL # 6.1 10^3/ul (1.6-7.5); NEUTROPHILS % 83.8 % (39.0-77.0); PLATELET COUNT 137 10^3/UL (140-415); POSITIVE DIFF @See below; RED BLOOD COUNT 5.03 10^6/ul (4.70-6.10); RED CELL DISTRIBUTION WIDTH 14.6 % (11.5-14.5); WHITE BLOOD COUNT 7.2 10^3/ul (4.8-10.8)
[2017-01-12 05:14] LABS: ALBUMIN 2.9 g/dl (3.3-4.9); ALBUMIN/GLOBULIN RATIO 0.96; BILIRUBIN,INDIRECT 0.8 mg/dl (0-1.1); BILIRUBIN,TOTAL 0.8 mg/dl (0.2-1.3); CREATININE 0.84 mg/dl (0.61-1.24); POTASSIUM 3.6 mmol/L (3.5-5.1); TOTAL PROTEIN 5.9 g/dl (6.1-8.1)
[2017-01-12 05:16] LABS: MAGNESIUM 2.2 mg/dl (1.7-2.5)
[2017-01-12] MEDS: PANTOPRAZOLE 40 MG INJ IV SCH ×2 (05:40→17:50)
[2017-01-12] MEDS: MEROPENEM 1 GM/50ML(PMX) 50 ML IVPB SCH (05:40)
[2017-01-12] MEDS: SOD CHLORIDE 0.9% 1,000 ML IV SCH ×3 (06:44→17:51)
[2017-01-12 08:04] VITALS: BP 117/63; RESP 20
--- NOTE | 2017-01-12 10:18 | PN ---
Date/Time of Note Date/Time of Note DATE: 01/12/17 TIME: 10:12 Assessment/Plan Lines/Catheters IV Catheter Type (from [facility]): Peripheral IV Blanc in Place (from [facility]): Yes Assessment/Plan Chief Complaint/Hosp Course 1. Abdominal pain: concern for perforated viscus: left hemiabdomen ; no fevers, tachycardia, normal wbc; abdomen soft min distended, +bm/flatus -close monitoring; at this point does not require emergent surgical intervention -iv abx -start clears today 2. Constipation: +bm -optimize bowel regimen 3. Multiple Hernias: Left Lat abdominal wall, periumbilical, hiatal, Right inguinal: all without pain or discomfort -possible eventual surgical repair -monitor 4. Overweight -eventual weight loss 5. Hypocalcemia with hypoalbuminemia:: likely nutritional -nutrition optimization 6. Anemia: likely dilutional -monitor and transfuse prn Patient seen and examined in collaboration with Dr. Dave Saldivar. Thank you. Problems: Subjective 24 Hr Interval Summary Had large BM yesterday. Feels much improved. Abdominal pain much improved. Up to chair. No fevers, tachycardia, chills, n/v/d/dysuria. Exam/Review of Systems Vital Signs Vitals Vital Signs Date Time Temp Pulse Resp B/P Pulse Ox O2 Delivery O2 Flow Rate FiO2 01/12/17 08:04 98.1 86 20 117/63 90 01/10/17 14:33 Room Air 2.0 Intake and Output 01/11/17 01/11/17 01/12/17 15:00 23:00 07:00 Intake Total 50 ml 1050 ml 100 ml Output Total 1000 ml 650 ml Balance 50 ml 50 ml -550 ml Exam Free Text/Dictation Constitutional: alert, oriented Psych: anxiety improved Head: atraumatic, normocephalic Eyes: nl lids, nl sclera ENMT: mucosa pink and moist, nl nasal mucosa & septum Neck: non-tender, supple Respiratory: normal air movement, No congested cough Cardiovascular: nl pulses, regular rate and rhythm Gastrointestinal: bowel sounds (hypoactive), distended (min, improved), other ( multiple hernias (umbilical, left abdominal wall- no pain from both), surgical scars, tender Genitourinary - Male: other Musculoskeletal: nl extremities to inspection Extremities: normal pulses, No edema Neurological: nl mental status, nl speech, nl strength Skin: No ecchymosis Results Result Diagram: 01/12/17 0426 01/12/17 0426 ANNA CHANG NP Jan 12, 2017 10:18
[2017-01-12] MEDS ORDERED: POTASSIUM CHLORIDE (SR) 20 MEQ TAB PO STA (11:25)
--- NOTE | 2017-01-12 11:25 | PN ---
Date/Time of Note Date/Time of Note DATE: 01/12/17 TIME: 11:23 Assessment/Plan VTE Prophylaxis VTE Prophylaxis Intervention: SCD's Lines/Catheters IV Catheter Type (from Nrs): Peripheral IV Urinary Cath still in place: Yes Reason Cath still needed: other (indicate) (Monitor urine output, discontinue tomorrow) Assessment/Plan Assessment/Plan 71-year-old male with: 1. Colitis, descending and proximal sigmoid colon, suspicion for left radha- abdomen perforated viscus. Conservative management, patient doing much better today, he had a bowel movement this morning, he denies abdominal pain, started on clear liquids per surgery General surgery following. Monitor closely, in case the patient needs surgical intervention, EKG and chest x-ray within normal. Patient denies any previous history of coronary artery disease, pulmonary disease, kidney disease. None of his present symptoms are indicative of any of those chronic illnesses. He may proceed with surgical intervention if needed. 2. Hyperlipidemia, per history, but fasting lipid panel this a.m. within normal Prophylaxis: SCDs for DVT prophylaxis, Protonix for GI prophylaxis. Disposition: IV antibiotics, clears, IV fluids, conservative management for now with general surgery following. Subjective 24 Hr Interval Summary Free Text/Dictation Patient doing well this morning, denies abdominal pain, had a bowel movement this morning. Denies any nausea or vomiting, starting on clear liquids today per surgical recommendation Exam/Review of Systems Vital Signs Vitals Vital Signs Date Time Temp Pulse Resp B/P Pulse Ox O2 Delivery O2 Flow Rate FiO2 01/12/17 08:04 98.1 86 20 117/63 90 01/10/17 14:33 Room Air 2.0 Intake and Output 01/11/17 01/11/17 01/12/17 15:00 23:00 07:00 Intake Total 50 ml 1050 ml 100 ml Output Total 1000 ml 650 ml Balance 50 ml 50 ml -550 ml Exam Constitutional: alert, oriented, well developed Respiratory: clear to auscultation, normal air movement Cardiovascular: nl pulses, regular rate and rhythm Gastrointestinal: distended (Slightly), non-tender, soft Musculoskeletal: nl extremities to inspection, nl gait and stance, other (No edema, clubbing or cyanosis) Extremities: normal pulses Neurological: PUMP REBUILDER II-XII intact, nl mental status, nl speech, nl strength Results Result Diagram: 01/12/17 0426 01/12/17 0426 Results 24 hrs Laboratory Tests Test 01/12/17 04:26 01/12/17 04:36 White Blood Count 7.2 Red Blood Count 5.03 Hemoglobin 13.2 L Hematocrit 40.6 L Mean Corpuscular Volume 80.7 L Mean Corpuscular Hemoglobin 26.2 L Mean Corpuscular Hemoglobin Concent 32.5 Red Cell Distribution Width 14.6 H Platelet Count 137 L Mean Platelet Volume 11.1 H Neutrophils % 83.8 H Lymphocytes % 10.5 L Monocytes % 4.7 Eosinophils % 0.1 Basophils % 0.3 Nucleated Red Blood Cells % 0.0 Neutrophils # 6.1 Lymphocytes # 0.8 Monocytes # 0.3 Eosinophils # 0.0 Basophils # 0.0 Nucleated Red Blood Cells # 0.0 Sodium Level 137 Potassium Level 3.6 Chloride Level 107 Carbon Dioxide Level 24 Anion Gap 10 # Blood Urea Nitrogen 15 Creatinine 0.84 Glucose Level 108 Calcium Level 8.0 L Total Bilirubin 0.8 Direct Bilirubin 0.00 Indirect Bilirubin 0.8 Aspartate Amino Transf (AST/SGOT) 17 Alanine Aminotransferase (ALT/SGPT) 30 Alkaline Phosphatase 44 Total Protein 5.9 L Albumin 2.9 L Globulin 3.00 Albumin/Globulin Ratio 0.96 Phosphorus Level 2.0 L Magnesium Level 2.2 Medications Medications Current Medications Sodium Chloride (NS) 1,000 ml @ 125 mls/hr Q8H IV Last administered on 09:15; Admin Dose 125 MLS/HR; Start 01/10/17 at 14:44 Ondansetron HCl (Zofran Inj) 4 mg Q6H PRN IV NAUSEA AND/OR VOMITING Last administered on 01/11/17 02:45; Admin Dose 4 MG; Start 01/10/17 at 15:00 Acetaminophen (Tylenol Tab) 650 mg Q6H PRN PO PAIN LEVEL 1-3 OR FEVER; Start at 15:00 Acetaminophen (Tylenol Supp) 650 mg Q6H PRN [place] PAIN LEVEL 1-3 OR FEVER Last administered on 01/12/17 05:47; Admin Dose 650 MG; Start 01/10/17 at 15:00 Morphine Sulfate (morphine) 2 mg Q4H PRN IV SEVERE PAIN LEVEL 7-10 Last administered on 01/11/17 02:51; Admin Dose 2 MG; Start 01/10/17 at 15:00 Docusate Sodium (Colace) 100 mg Q12H PRN PO CONSTIPATION; Start 01/10/17 at 15: 00 Magnesium Hydroxide (Milk Of Mag) 30 ml DAILY PRN PO CONSTIPATION; Start at 15:00 Bisacodyl 10 mg 10 mg DAILY PRN [place] CONSTIPATION Last administered on 01/11/17 12:19; Admin Dose 10 MG; Start 01/10/17 at 15:00 Meropenem/Sodium Chloride (Merrem 1 Gm/50 ml (Pmx)) 50 ml @ 100 mls/hr Q8 IVPB Last administered on 01/12/17 05:40; Admin Dose 100 MLS/HR; Start 01/10/17 at 22:00 Pantoprazole (Protonix Iv) 40 mg BID@06,18 IV Last administered on 01/12/17 05 :40; Admin Dose 40 MG; Start 01/10/17 at 18:00 Sodium Biphosphate/ Sodium Phosphate (Fleet Enema) 133 ml DAILY PRN [place] CONSTIPATION; Start 01/11/17 at 12:00 MÓNICA OLGUIN Jan 12, 2017 11:25
[2017-01-12 14:50] VITALS: BP 129/67; RESP 20
[2017-01-12] MEDS ORDERED: MEROPENEM 1 GM/50ML(PMX) 50 ML IVPB SCH (15:00)
[2017-01-12] MEDS: MEROPENEM 1 GM in SOD CHLORIDE 0.9% 50 ML IVPB SCH ×2 (15:26→21:42)
[2017-01-12 19:25] VITALS: BP 134/67; RESP 18
[2017-01-13] MEDS: SOD CHLORIDE 0.9% 1,000 ML IV SCH ×3 (00:44→14:38)
[2017-01-13 01:42] VITALS: BP 112/56; RESP 18
[2017-01-13] MEDS: PANTOPRAZOLE 40 MG INJ IV SCH (05:20)
[2017-01-13] MEDS: MEROPENEM 1 GM in SOD CHLORIDE 0.9% 50 ML IVPB SCH ×3 (05:20→21:48)
[2017-01-13 06:13] LABS: BASOPHILS % 0.3 % (0.0-2.0); EOSINOPHILS # 0.2 10^3/ul (0.0-0.5); EOSINOPHILS % 2.4 % (0.0-7.0); HEMATOCRIT 41.1 % (42.0-52.0); HEMOGLOBIN 13.4 g/dl (14.0-18.0); LYMPHOCYTES % 13.6 % (15.0-51.0); MEAN CORPUSCULAR HEMOGLOBIN 26.2 pg (29.0-33.0); MEAN CORPUSCULAR HGB CONC 32.6 g/dl (32.0-37.0); MEAN CORPUSCULAR VOLUME 80.3 fl (82.0-101.0); MEAN PLATELET VOLUME 11.1 fl (7.4-10.4); MONOCYTE # 0.4 10^3/ul (0.3-0.9); NEUTROPHIL # 5.5 10^3/ul (1.6-7.5); NEUTROPHILS % 78.3 % (39.0-77.0); PLATELET COUNT 146 10^3/UL (140-415); RED BLOOD COUNT 5.12 10^6/ul (4.70-6.10); RED CELL DISTRIBUTION WIDTH 14.4 % (11.5-14.5)
[2017-01-13 06:33] LABS: MAGNESIUM 1.9 mg/dl (1.7-2.5); PHOSPHORUS 1.6 mg/dl (2.5-4.9)
[2017-01-13 06:45] LABS: CALCIUM 8.2 mg/dl (8.4-10.2); CREATININE 0.64 mg/dl (0.61-1.24); POTASSIUM 3.8 mmol/L (3.5-5.1)
[2017-01-13 08:14] VITALS: BP 140/75; RESP 18
--- NOTE | 2017-01-13 09:13 | PN ---
Date/Time of Note Date/Time of Note DATE: 01/13/17 TIME: 09:07 Assessment/Plan Lines/Catheters IV Catheter Type (from [facility]): Peripheral IV Blanc in Place (from [facility]): No Assessment/Plan Chief Complaint/Hosp Course 1. Abdominal pain: concern for perforated viscus: left hemiabdomen ; min fever, tachycardia, normal wbc; abdomen soft min distended, +bm/flatus, tolerating clears with min pain/discomfort -close monitoring; at this point does not require emergent surgical intervention -iv abx -keep on clears today and advance slow 2. Constipation: +bm -optimize bowel regimen 3. Multiple Hernias: Left Lat abdominal wall, periumbilical, hiatal, Right inguinal: all without pain or discomfort -possible eventual surgical repair -monitor 4. Overweight -eventual weight loss 5. Hypocalcemia with hypoalbuminemia:: likely nutritional -nutrition optimization 6. Anemia: likely dilutional; h/h stable -monitor and transfuse prn Patient seen and examined in collaboration with Dr. Dave Saldivar. Thank you. Problems: Subjective 24 Hr Interval Summary Feels better. +bowel function. Tolerating clears with min abdominal discomfort. Fever overnight but currently afebrile. No cp, palpitations, n/v/d/dysuria, sob , cough. Exam/Review of Systems Vital Signs Vitals Vital Signs Date Time Temp Pulse Resp B/P Pulse Ox O2 Delivery O2 Flow Rate FiO2 01/13/17 08:14 98.8 79 18 140/75 93 01/10/17 14:33 Room Air 2.0 Intake and Output 01/12/17 01/12/17 01/13/17 15:00 23:00 07:00 Intake Total 1625 ml 1400 ml 1600 ml Output Total 1200 ml Balance 1625 ml 1400 ml 400 ml Exam Free Text/Dictation Constitutional: alert, oriented Psych: anxiety improved Head: atraumatic, normocephalic Eyes: nl lids, nl sclera ENMT: mucosa pink and moist, nl nasal mucosa & septum Neck: non-tender, supple Respiratory: normal air movement, No congested cough Cardiovascular: nl pulses, regular rate and rhythm Gastrointestinal: bowel sounds (hypoactive), distended (min, improved), other ( multiple hernias (umbilical, left abdominal wall- no pain from both), surgical scars, min tender Genitourinary - Male: other Musculoskeletal: nl extremities to inspection Extremities: normal pulses, No edema Neurological: nl mental status, nl speech, nl strength Skin: No ecchymosis Results Result Diagram: 01/13/17 0544 01/13/17 0544 ANNA CHANG NP Jan 13, 2017 09:13
--- NOTE | 2017-01-13 14:49 | PN ---
Date/Time of Note Date/Time of Note DATE: 01/13/17 TIME: 14:46 Assessment/Plan VTE Prophylaxis VTE Prophylaxis Intervention: SCD's Lines/Catheters IV [facility]ter Type (from [facility]): Peripheral IV Urinary Cath still in place: No Assessment/Plan Assessment/Plan 71-year-old male with: 1. Colitis, descending and proximal sigmoid colon, suspicion for left radha- abdomen perforated viscus. Patient remains stable. Conservative management so far, minimal abdominal pain, started on clear liquids , patient had some abdo pain overnight, low-grade temperature, therefore to remain on clear liquids for now General surgery following. Monitor closely, in case the patient needs surgical intervention, EKG and chest x-ray within normal. Patient denies any previous history of coronary artery disease, pulmonary disease, kidney disease. None of his present symptoms are indicative of any of those chronic illnesses. He may proceed with surgical intervention if needed. Prophylaxis: SCDs for DVT prophylaxis, Protonix for GI prophylaxis. Disposition: IV antibiotics, clears, IV fluids, conservative management for now with general surgery following. Subjective 24 Hr Interval Summary Free Text/Dictation Patient feels better than yesterday, he is on clear liquids currently, he has minimal tenderness to palpation left lower quadrant. It is however noted that he had a low-grade temperature overnight, therefore he will remain on clear liquids per surgery. White blood cell count within normal, on IV antibiotics and IV fluids. Exam/Review of Systems Vital Signs Vitals Vital Signs Date Time Temp Pulse Resp B/P Pulse Ox O2 Delivery O2 Flow Rate FiO2 01/13/17 08:14 98.8 79 18 140/75 93 01/10/17 14:33 Room Air 2.0 Intake and Output 01/12/17 01/12/17 01/13/17 15:00 23:00 07:00 Intake Total 1625 ml 1400 ml 1600 ml Output Total 1200 ml Balance 1625 ml 1400 ml 400 ml Exam Constitutional: alert, oriented, well developed Respiratory: clear to auscultation, normal air movement Cardiovascular: nl pulses, regular rate and rhythm Gastrointestinal: soft, tender (Mild. left lower quadrant) Musculoskeletal: nl extremities to inspection Extremities: normal pulses, other (No edema, clubbing, cyanosis) Neurological: PHYSICAL THERAPIST CLINIC DIRECTOR II-XII intact, nl mental status, nl speech, nl strength (At baseline) Results Result Diagram: 01/13/17 0544 01/13/17 0544 Results 24 hrs Laboratory Tests Test 01/13/17 05:44 White Blood Count 7.0 Red Blood Count 5.12 Hemoglobin 13.4 L Hematocrit 41.1 L Mean Corpuscular Volume 80.3 L Mean Corpuscular Hemoglobin 26.2 L Mean Corpuscular Hemoglobin Concent 32.6 Red Cell Distribution Width 14.4 Platelet Count 146 Mean Platelet Volume 11.1 H Neutrophils % 78.3 H Lymphocytes % 13.6 L Monocytes % 5.0 Eosinophils % 2.4 Basophils % 0.3 Nucleated Red Blood Cells % 0.0 Neutrophils # 5.5 Lymphocytes # 1.0 Monocytes # 0.4 Eosinophils # 0.2 Basophils # 0.0 Nucleated Red Blood Cells # 0.0 Sodium Level 138 Potassium Level 3.8 Chloride Level 104 Carbon Dioxide Level 23 Anion Gap 15 Blood Urea Nitrogen 9 Creatinine 0.64 Glucose Level 101 Calcium Level 8.2 L Phosphorus Level 1.6 L Magnesium Level 1.9 Medications Medications Current Medications Sodium Chloride (NS) 1,000 ml @ 100 mls/hr Q10H IV Last administered on 14:38; Admin Dose 100 MLS/HR; Start 01/10/17 at 14:44 Ondansetron HCl (Zofran Inj) 4 mg Q6H PRN IV NAUSEA AND/OR VOMITING Last administered on 01/11/17 02:45; Admin Dose 4 MG; Start 01/10/17 at 15:00 Acetaminophen (Tylenol Tab) 650 mg Q6H PRN PO PAIN LEVEL 1-3 OR FEVER Last administered on 01/13/17 09:04; Admin Dose 650 MG; Start 01/10/17 at 15:00 Acetaminophen (Tylenol Supp) 650 mg Q6H PRN [place] PAIN LEVEL 1-3 OR FEVER Last administered on 01/12/17 05:47; Admin Dose 650 MG; Start 01/10/17 at 15:00 Morphine Sulfate (morphine) 2 mg Q4H PRN IV SEVERE PAIN LEVEL 7-10 Last administered on 01/11/17 02:51; Admin Dose 2 MG; Start 01/10/17 at 15:00 Docusate Sodium (Colace) 100 mg Q12H PRN PO CONSTIPATION; Start 01/10/17 at 15: 00 Magnesium Hydroxide (Milk Of Mag) 30 ml DAILY PRN PO CONSTIPATION; Start at 15:00 Bisacodyl (Dulcolax Supp) 10 mg DAILY PRN [place] CONSTIPATION Last administered on 01/11/17 12:19; Admin Dose 10 MG; Start 01/10/17 at 15:00 Sodium Biphosphate/ Sodium Phosphate 133 ml 133 ml DAILY PRN [place] CONSTIPATION; Start 01/11/17 at 12:00 Meropenem/Sodium Chloride (Merrem/NS) 50 ml @ 50 mls/hr Q8 IVPB Last administered on 01/13/17 14:36; Admin Dose 50 MLS/HR; Start 01/12/17 at 15:15 Famotidine (Pepcid Iv) 20 mg BID IV ; Start 01/13/17 at 21:00 MÓNICA OLGUIN Jan 13, 2017 14:49
[2017-01-13] MEDS ORDERED: POTASSIUM PHOSPHATE 15 MM in SOD CHLORIDE 0.9% 250 ML IVPB ONE (16:30)
[2017-01-13 20:15] VITALS: BP 135/67; RESP 18
[2017-01-13] MEDS: FAMOTIDINE 20 MG INJ IV SCH (21:48)
[2017-01-14 02:22] VITALS: BP 141/78; RESP 16
[2017-01-14] MEDS: MEROPENEM 1 GM in SOD CHLORIDE 0.9% 50 ML IVPB SCH ×3 (05:19→21:41)
[2017-01-14] MEDS: SOD CHLORIDE 0.9% 1,000 ML IV SCH ×3 (05:20→22:19)
[2017-01-14 05:22] LABS: BASOPHILS % 0.3 % (0.0-2.0); EOSINOPHILS # 0.3 10^3/ul (0.0-0.5); EOSINOPHILS % 5.3 % (0.0-7.0); HEMATOCRIT 38.1 % (42.0-52.0); HEMOGLOBIN 12.7 g/dl (14.0-18.0); LYMPHOCYTES # 0.8 10^3/ul (0.8-2.9); MEAN CORPUSCULAR HEMOGLOBIN 26.1 pg (29.0-33.0); MEAN CORPUSCULAR HGB CONC 33.3 g/dl (32.0-37.0); MEAN CORPUSCULAR VOLUME 78.4 fl (82.0-101.0); MEAN PLATELET VOLUME 10.7 fl (7.4-10.4); MONOCYTE # 0.5 10^3/ul (0.3-0.9); MONOCYTES % 8.2 % (0.0-11.0); NEUTROPHILS % 72.6 % (39.0-77.0); PLATELET COUNT 164 10^3/UL (140-415); RED BLOOD COUNT 4.86 10^6/ul (4.70-6.10); WHITE BLOOD COUNT 6.4 10^3/ul (4.8-10.8)
[2017-01-14 05:46] LABS: ALBUMIN 2.8 g/dl (3.3-4.9); ALBUMIN/GLOBULIN RATIO 0.96; BILIRUBIN,INDIRECT 0.6 mg/dl (0-1.1); BILIRUBIN,TOTAL 0.6 mg/dl (0.2-1.3); CALCIUM 7.7 mg/dl (8.4-10.2); CREATININE 0.61 mg/dl (0.61-1.24); POTASSIUM 3.3 mmol/L (3.5-5.1); TOTAL PROTEIN 5.7 g/dl (6.1-8.1)
[2017-01-14 05:49] LABS: MAGNESIUM 1.7 mg/dl (1.7-2.5); PHOSPHORUS 2.6 mg/dl (2.5-4.9)
[2017-01-14 08:05] VITALS: BP 128/75; RESP 16
--- NOTE | 2017-01-14 08:23 | PN ---
Date/Time of Note Date/Time of Note DATE: 01/14/17 TIME: 08:11 Assessment/Plan Lines/Catheters IV Catheter Type (from [facility]): Peripheral IV Blanc in Place (from [facility]): No Assessment/Plan Chief Complaint/Hosp Course 1. Abdominal pain: concern for perforated viscus: left hemiabdomen ; min fever, tachycardia, normal wbc; abdomen soft min distended, +bm/flatus, tolerating clears; min pain/discomfort -close monitoring; at this point does not require emergent surgical intervention -iv abx -keep on clears today 2. Constipation: +bm -optimize bowel regimen 3. Multiple Hernias: Left Lat abdominal wall, periumbilical, hiatal, Right inguina -possible eventual surgical repair -monitor 4. Overweight -eventual weight loss 5. Hypocalcemia with hypoalbuminemia:: likely nutritional -nutrition optimization 6. Anemia: likely dilutional; h/h stable -monitor and transfuse prn 7. Hypokalemia -optimize lytes Patient seen and examined in collaboration with Dr. Dave Saldivar. Thank you. Problems: Subjective 24 Hr Interval Summary Feels ok. Min abdominal pain/tenderness. +bowel function. Tolerating clears. ambulating without difficulty. Exam/Review of Systems Vital Signs Vitals Vital Signs Date Time Temp Pulse Resp B/P Pulse Ox O2 Delivery O2 Flow Rate FiO2 01/14/17 08:05 97.8 78 16 128/75 93 01/10/17 14:33 Room Air 2.0 Intake and Output 01/13/17 01/13/17 01/14/17 15:00 23:00 07:00 Intake Total 1000 ml 1210 ml 1900 ml Output Total 1150 ml Balance 1000 ml 1210 ml 750 ml Exam Free Text/Dictation Constitutional: alert, oriented Psych: anxiety improved Head: atraumatic, normocephalic Eyes: nl lids, nl sclera ENMT: mucosa pink and moist, nl nasal mucosa & septum Neck: non-tender, supple Respiratory: normal air movement, No congested cough Cardiovascular: nl pulses, regular rate and rhythm Gastrointestinal: bowel sounds, distended (min), other (multiple hernias ( umbilical, left abdominal wall), surgical scars, min tender Genitourinary - Male: other Musculoskeletal: nl extremities to inspection Extremities: normal pulses, No edema Neurological: nl mental status, nl speech, nl strength Skin: No ecchymosis Results Result Diagram: 01/14/1741901/14/17419 ANNA CHANG NP Jan 14, 2017 08:21
[2017-01-14] MEDS: FAMOTIDINE 20 MG INJ IV SCH ×2 (09:33→20:53)
[2017-01-14] MEDS ORDERED: POTASSIUM CHLORIDE 250 ML IVPB ONE (10:00)
[2017-01-14 16:08] VITALS: BP 146/76; RESP 18
--- NOTE | 2017-01-14 16:43 | PN ---
Date/Time of Note Date/Time of Note DATE: 01/14/17 TIME: 16:39 Assessment/Plan VTE Prophylaxis VTE Prophylaxis Intervention: SCD's Lines/Catheters IV C[facility]ter Type (from [facility]): Peripheral IV Urinary Cath still in place: No Assessment/Plan Chief Complaint/Hosp Course 1. Colitis, descending and proximal sigmoid colon, suspicion for left radha- abdomen perforated viscus. Patient remains stable. Conservative management so far, minimal abdominal pain, advanced to full liquids as abdominal pain has resolved as have fevers General surgery following, advance diet as tolerated Monitor closely, in case the patient needs surgical intervention, EKG and chest x-ray within normal. Patient denies any previous history of coronary artery disease, pulmonary disease, kidney disease. None of his present symptoms are indicative of any of those chronic illnesses. He may proceed with surgical intervention if needed. Prophylaxis: SCDs for DVT prophylaxis, Protonix for GI prophylaxis. Disposition: IV antibiotics, full liquid diet and advance as tolerated per surgery, IV fluids, conservative management for now with general surgery following, consider long term placement if indicated for IV antibiotics Problems: Subjective 24 Hr Interval Summary Constitutional: no complaints Exam/Review of Systems Vital Signs Vitals Vital Signs Date Time Temp Pulse Resp B/P Pulse Ox O2 Delivery O2 Flow Rate FiO2 01/14/17 16:08 98.3 74 18 146/76 94 01/10/17 14:33 Room Air 2.0 Intake and Output 01/13/17 01/13/17 01/14/17 15:00 23:00 07:00 Intake Total 1000 ml 1210 ml 1900 ml Output Total 1150 ml Balance 1000 ml 1210 ml 750 ml Exam Constitutional: alert, oriented Respiratory: clear to auscultation Cardiovascular: regular rate and rhythm Gastrointestinal: non-tender, soft, No distended Musculoskeletal: nl extremities to inspection Results Result Diagram: 01/14/17 0420 01/14/17 0420 Results 24 hrs Laboratory Tests Test 01/14/17 04:20 White Blood Count 6.4 Red Blood Count 4.86 Hemoglobin 12.7 L Hematocrit 38.1 L Mean Corpuscular Volume 78.4 L Mean Corpuscular Hemoglobin 26.1 L Mean Corpuscular Hemoglobin Concent 33.3 Red Cell Distribution Width 14.0 Platelet Count 164 Mean Platelet Volume 10.7 H Neutrophils % 72.6 Lymphocytes % 13.0 L Monocytes % 8.2 Eosinophils % 5.3 Basophils % 0.3 Nucleated Red Blood Cells % 0.0 Neutrophils # (Manual) 4.7 Lymphocytes # 0.8 Monocytes # 0.5 Eosinophils # 0.3 Basophils # 0.0 Nucleated Red Blood Cells # 0.0 Sodium Level 134 L Potassium Level 3.3 L Chloride Level 104 Carbon Dioxide Level 23 Anion Gap 10 # Blood Urea Nitrogen 7 Creatinine 0.61 Glucose Level 101 Calcium Level 7.7 L Phosphorus Level 2.6 Magnesium Level 1.7 Total Bilirubin 0.6 Direct Bilirubin 0.00 Indirect Bilirubin 0.6 Aspartate Amino Transf (AST/SGOT) 20 Alanine Aminotransferase (ALT/SGPT) 27 Alkaline Phosphatase 48 Total Protein 5.7 L Albumin 2.8 L Globulin 2.90 Albumin/Globulin Ratio 0.96 Medications Medications Current Medications Sodium Chloride (NS) 1,000 ml @ 100 mls/hr Q10H IV Last administered on 05:20; Admin Dose 100 MLS/HR; Start 01/10/17 at 14:44 Ondansetron HCl (Zofran Inj) 4 mg Q6H PRN IV NAUSEA AND/OR VOMITING Last administered on 01/11/17 02:45; Admin Dose 4 MG; Start 01/10/17 at 15:00 Acetaminophen (Tylenol Tab) 650 mg Q6H PRN PO PAIN LEVEL 1-3 OR FEVER Last administered on 01/13/17 09:04; Admin Dose 650 MG; Start 01/10/17 at 15:00 Acetaminophen (Tylenol Supp) 650 mg Q6H PRN [place] PAIN LEVEL 1-3 OR FEVER Last administered on 01/12/17 05:47; Admin Dose 650 MG; Start 01/10/17 at 15:00 Morphine Sulfate (morphine) 2 mg Q4H PRN IV SEVERE PAIN LEVEL 7-10 Last administered on 01/11/17 02:51; Admin Dose 2 MG; Start 01/10/17 at 15:00 Docusate Sodium (Colace) 100 mg Q12H PRN PO CONSTIPATION; Start 01/10/17 at 15: 00 Magnesium Hydroxide (Milk Of Mag) 30 ml DAILY PRN PO CONSTIPATION; Start at 15:00 Bisacodyl (Dulcolax Supp) 10 mg DAILY PRN [place] CONSTIPATION Last administered on 01/11/17 12:19; Admin Dose 10 MG; Start 01/10/17 at 15:00 Sodium Biphosphate/ Sodium Phosphate 133 ml 133 ml DAILY PRN [place] CONSTIPATION; Start 01/11/17 at 12:00 Meropenem/Sodium Chloride (Merrem/NS) 50 ml @ 50 mls/hr Q8 IVPB Last administered on 01/14/17 15:25; Admin Dose 50 MLS/HR; Start 01/12/17 at 15:15 Famotidine (Pepcid Iv) 20 mg BID IV Last administered on 01/14/17 09:33; Admin Dose 20 MG; Start 01/13/17 at 21:00 CIARA HU Jan 14, 2017 16:42
[2017-01-14 19:16] VITALS: BP 157/70; RESP 18
[2017-01-14 20:26] VITALS: BP 142/74; PULSE 74; RESP 18
[2017-01-15 01:42] VITALS: BP 136/66; RESP 18
[2017-01-15 05:38] LABS: BASOPHILS % 0.5 % (0.0-2.0); EOSINOPHILS # 0.5 10^3/ul (0.0-0.5); EOSINOPHILS % 8.7 % (0.0-7.0); HEMATOCRIT 39.3 % (42.0-52.0); HEMOGLOBIN 12.9 g/dl (14.0-18.0); LYMPHOCYTES # 1.5 10^3/ul (0.8-2.9); LYMPHOCYTES % 25.5 % (15.0-51.0); MEAN CORPUSCULAR HEMOGLOBIN 25.7 pg (29.0-33.0); MEAN CORPUSCULAR HGB CONC 32.8 g/dl (32.0-37.0); MEAN CORPUSCULAR VOLUME 78.3 fl (82.0-101.0); MEAN PLATELET VOLUME 10.2 fl (7.4-10.4); MONOCYTE # 0.7 10^3/ul (0.3-0.9); MONOCYTES % 12.2 % (0.0-11.0); NEUTROPHILS % 51.8 % (39.0-77.0); PLATELET COUNT 204 10^3/UL (140-415); RED BLOOD COUNT 5.02 10^6/ul (4.70-6.10); RED CELL DISTRIBUTION WIDTH 13.9 % (11.5-14.5)
[2017-01-15] MEDS: MEROPENEM 1 GM in SOD CHLORIDE 0.9% 50 ML IVPB SCH (05:43)
[2017-01-15 05:48] LABS: CALCIUM 8.1 mg/dl (8.4-10.2); CREATININE 0.65 mg/dl (0.61-1.24); PHOSPHORUS 2.8 mg/dl (2.5-4.9); POTASSIUM 3.5 mmol/L (3.5-5.1)
[2017-01-15 07:43] VITALS: BP 141/70; RESP 20
--- NOTE | 2017-01-15 08:13 | PN ---
Date/Time of Note Date/Time of Note DATE: 01/15/17 TIME: 08:07 Assessment/Plan Lines/Catheters IV Catheter Type (from [facility]): Peripheral IV Blanc in Place (from [facility]): No Assessment/Plan Chief Complaint/Hosp Course 1. Abdominal pain: concern for perforated viscus: left hemiabdomen ; min fever, tachycardia, normal wbc; abdomen soft min distended, +bm/flatus, tolerating clears-started on fulls but was only took clears yesterday; min pain/discomfort -close monitoring; at this point does not require emergent surgical intervention -iv abx -advance diet per patient tolerance -suspect RLQ likely from hernia-may need intervention if persistent 2. Constipation: +bm -optimize bowel regimen 3. Multiple Hernias: Left Lat abdominal wall, periumbilical, hiatal, Right inguina -possible eventual surgical repair -monitor 4. Overweight -eventual weight loss 5. Hypocalcemia with hypoalbuminemia:: likely nutritional -nutrition optimization 6. Anemia: likely dilutional; h/h stable -monitor and transfuse prn 7. Hypokalemia -optimize lytes Patient seen and examined in collaboration with Dr. Dave Saldivar. Thank you. Problems: Subjective 24 Hr Interval Summary c/o rlq abdominal pain described as hard stabbing. No nausea vomiting. +bowel function. No fevers, chills, tachycardia, sob, cough. Tolerating clear liquid diet - full liquids started yesterday but was only taking clears. Exam/Review of Systems Vital Signs Vitals Vital Signs Date Time Temp Pulse Resp B/P Pulse Ox O2 Delivery O2 Flow Rate FiO2 01/15/17 07:43 97.8 79 20 141/70 96 01/14/17 20:26 Room Air Intake and Output 01/14/17 01/14/17 01/15/17 15:00 23:00 07:00 Intake Total 2090 ml 1250 ml Output Total 750 ml 1100 ml Balance 1340 ml 150 ml Exam Free Text/Dictation Constitutional: alert, oriented Psych: anxiety improved Head: atraumatic, normocephalic Eyes: nl lids, nl sclera ENMT: mucosa pink and moist, nl nasal mucosa & septum Neck: non-tender, supple Respiratory: normal air movement, No congested cough Cardiovascular: nl pulses, regular rate and rhythm Gastrointestinal: bowel sounds, distended (min), other (multiple hernias ( umbilical, left abdominal wall), surgical scars, min tender Genitourinary - Male: other Musculoskeletal: nl extremities to inspection Extremities: normal pulses, No edema Neurological: nl mental status, nl speech, nl strength Skin: No ecchymosis Results Result Diagram: 01/15/17 0501 01/15/17 0510 ANNA CHANG NP Jan 15, 2017 08:12
[2017-01-15] MEDS: morphine 2 MG INJ IV PRN (08:16)
[2017-01-15] MEDS: FAMOTIDINE 20 MG INJ IV SCH ×2 (08:17→22:15)
[2017-01-15] MEDS: SOD CHLORIDE 0.9% 1,000 ML IV SCH ×2 (13:39→23:58)
[2017-01-15] MEDS: MEROPENEM 1 GM/50ML(PMX) 50 ML IVPB SCH ×2 (13:42→22:16)
[2017-01-15] MEDS ORDERED: MEROPENEM 1 GM/50ML(PMX) 50 ML IVPB SCH (14:00)
--- NOTE | 2017-01-15 14:06 | PN ---
Date/Time of Note Date/Time of Note DATE: 01/15/17 TIME: 13:49 Assessment/Plan VTE Prophylaxis VTE Prophylaxis Intervention: SCD's Lines/Catheters IV Catheter Type (from [facility]): Peripheral IV Urinary Cath still in place: No Assessment/Plan Assessment/Plan 71-year-old male with: 1. Colitis, descending and proximal sigmoid colon, suspicion for left radha- abdomen perforated viscus. Patient remains stable. Conservative management so far, minimal LLQ abdominal pain, on full liquid now, so far tolerated. No fevers, vital signs stable General surgery following. Continue to monitor closely, in case the patient needs surgical intervention, EKG and chest x-ray within normal. Patient denies any previous history of coronary artery disease, pulmonary disease, kidney disease. None of his present symptoms are indicative of any of those chronic illnesses. He may proceed with surgical intervention if needed. Prophylaxis: SCDs for DVT prophylaxis, Protonix for GI prophylaxis. Disposition: IV antibiotics, full liquid diet, to be advanced as tolerated per surgery, IV fluids, improving slowly with ongoing conservative management with general surgery following. Subjective 24 Hr Interval Summary Free Text/Dictation Patient doing better today, he denies nausea or vomiting, he is tolerating full liquid diet, he has minimal pain left lower quadrant. Still on full liquid per surgery, also on IV antibiotics. Will discuss disposition tomorrow with general surgery. Exam/Review of Systems Vital Signs Vitals Vital Signs Date Time Temp Pulse Resp B/P Pulse Ox O2 Delivery O2 Flow Rate FiO2 01/15/17 07:43 97.8 79 20 141/70 96 01/14/17 20:26 Room Air Intake and Output 01/14/17 01/14/17 01/15/17 15:00 23:00 07:00 Intake Total 2090 ml 1250 ml Output Total 750 ml 1100 ml Balance 1340 ml 150 ml Exam Constitutional: alert, oriented, well developed Cardiovascular: nl pulses, regular rate and rhythm Gastrointestinal: soft, tender (Minimal left lower quadrant) Musculoskeletal: nl extremities to inspection Extremities: normal pulses Neurological: OSTOMY NURSE II-XII intact, nl mental status, nl speech, nl strength Results Result Diagram: 01/15/17 0501 01/15/17 0510 Results 24 hrs Laboratory Tests Test 01/15/17 05:01 01/15/17 05:10 White Blood Count 6.0 Red Blood Count 5.02 Hemoglobin 12.9 L Hematocrit 39.3 L Mean Corpuscular Volume 78.3 L Mean Corpuscular Hemoglobin 25.7 L Mean Corpuscular Hemoglobin Concent 32.8 Red Cell Distribution Width 13.9 Platelet Count 204 # Mean Platelet Volume 10.2 Neutrophils % 51.8 Lymphocytes % 25.5 Monocytes % 12.2 H Eosinophils % 8.7 H Basophils % 0.5 Nucleated Red Blood Cells % 0.0 Neutrophils # (Manual) 3.1 Lymphocytes # 1.5 Monocytes # 0.7 Eosinophils # 0.5 Basophils # 0.0 Nucleated Red Blood Cells # 0.0 Sodium Level 134 L Potassium Level 3.5 Chloride Level 103 Carbon Dioxide Level 25 Anion Gap 10 Blood Urea Nitrogen 7 Creatinine 0.65 Glucose Level 94 Calcium Level 8.1 L Phosphorus Level 2.8 Magnesium Level 2.0 Medications Medications Current Medications Sodium Chloride (NS) 1,000 ml @ 100 mls/hr Q10H IV Last administered on 13:39; Admin Dose 100 MLS/HR; Start 01/10/17 at 14:44 Ondansetron HCl (Zofran Inj) 4 mg Q6H PRN IV NAUSEA AND/OR VOMITING Last administered on 01/11/17 02:45; Admin Dose 4 MG; Start 01/10/17 at 15:00 Acetaminophen (Tylenol Tab) 650 mg Q6H PRN PO PAIN LEVEL 1-3 OR FEVER Last administered on 01/13/17 09:04; Admin Dose 650 MG; Start 01/10/17 at 15:00 Acetaminophen (Tylenol Supp) 650 mg Q6H PRN [place] PAIN LEVEL 1-3 OR FEVER Last administered on 01/12/17 05:47; Admin Dose 650 MG; Start 01/10/17 at 15:00 Morphine Sulfate (morphine) 2 mg Q4H PRN IV SEVERE PAIN LEVEL 7-10 Last administered on 01/15/17 08:16; Admin Dose 2 MG; Start 01/10/17 at 15:00 Docusate Sodium (Colace) 100 mg Q12H PRN PO CONSTIPATION; Start 01/10/17 at 15: 00 Magnesium Hydroxide (Milk Of Mag) 30 ml DAILY PRN PO CONSTIPATION; Start at 15:00 Bisacodyl (Dulcolax Supp) 10 mg DAILY PRN [place] CONSTIPATION Last administered on 01/11/17 12:19; Admin Dose 10 MG; Start 01/10/17 at 15:00 Sodium Biphosphate/ Sodium Phosphate (Fleet Enema) 133 ml DAILY PRN [place] CONSTIPATION; Start 01/11/17 at 12:00 Famotidine 20 mg 20 mg BID IV Last administered on 01/15/17 08:17; Admin Dose 20 MG; Start 01/13/17 at 21:00 Meropenem/Sodium Chloride (Merrem 1 Gm/50 ml (Pmx)) 50 ml @ 100 mls/hr Q8 IVPB Last administered on 01/15/17 13:42; Admin Dose 100 MLS/HR; Start 01/15/17 at 14:00 MÓNICA OLGUIN Jan 15, 2017 13:59
[2017-01-15 14:27] VITALS: BP 127/68; RESP 20
[2017-01-15 20:15] VITALS: BP 149/75; RESP 20
[2017-01-16 02:30] VITALS: BP 137/68; RESP 20
[2017-01-16] MEDS: MEROPENEM 1 GM/50ML(PMX) 50 ML IVPB SCH ×2 (05:07→13:31)
[2017-01-16 05:22] LABS: BASOPHILS % 0.4 % (0.0-2.0); EOSINOPHILS # 0.5 10^3/ul (0.0-0.5); EOSINOPHILS % 8.5 % (0.0-7.0); HEMATOCRIT 41.2 % (42.0-52.0); HEMOGLOBIN 13.6 g/dl (14.0-18.0); LYMPHOCYTES # 1.8 10^3/ul (0.8-2.9); LYMPHOCYTES % 32.3 % (15.0-51.0); MEAN CORPUSCULAR HEMOGLOBIN 26.1 pg (29.0-33.0); MEAN CORPUSCULAR VOLUME 78.9 fl (82.0-101.0); MONOCYTE # 0.8 10^3/ul (0.3-0.9); MONOCYTES % 15.1 % (0.0-11.0); NEUTROPHILS % 41.9 % (39.0-77.0); PLATELET COUNT 236 10^3/UL (140-415); POSITIVE DIFF @See below; RED BLOOD COUNT 5.22 10^6/ul (4.70-6.10); RED CELL DISTRIBUTION WIDTH 13.8 % (11.5-14.5); WHITE BLOOD COUNT 5.5 10^3/ul (4.8-10.8)
[2017-01-16 05:27] LABS: MAGNESIUM 1.9 mg/dl (1.7-2.5); PHOSPHORUS 3.2 mg/dl (2.5-4.9)
[2017-01-16 05:30] LABS: ALBUMIN 3.1 g/dl (3.3-4.9); ALBUMIN/GLOBULIN RATIO 0.91; BILIRUBIN,INDIRECT 0.4 mg/dl (0-1.1); BILIRUBIN,TOTAL 0.4 mg/dl (0.2-1.3); CALCIUM 8.3 mg/dl (8.4-10.2); CREATININE 0.54 mg/dl (0.61-1.24); POTASSIUM 3.6 mmol/L (3.5-5.1); TOTAL PROTEIN 6.5 g/dl (6.1-8.1)
[2017-01-16] MEDS: SOD CHLORIDE 0.9% 1,000 ML IV SCH (07:44)
[2017-01-16 08:18] VITALS: BP 142/68; RESP 20
[2017-01-16] MEDS: FAMOTIDINE 20 MG INJ IV SCH (09:12)
--- NOTE | 2017-01-16 10:14 | PN ---
Date/Time of Note Date/Time of Note DATE: 01/16/17 TIME: 10:08 Assessment/Plan Lines/Catheters IV Catheter Type (from [facility]): Peripheral IV Blanc in Place (from [facility]): No Assessment/Plan Chief Complaint/Hosp Course 1. Abdominal pain: concern for perforated viscus: left hemiabdomen ; no fever/ tachycardia, normal wbc; abdomen soft nondistended, +bm/flatus, tolerating full liquids, -close monitoring; at this point does not require emergent surgical intervention -iv abx -advance diet to soft -suspect abdominal pain likely from hernia- may follow outpatient with primary surgeon for hernia repair 2. Constipation: resolved -optimize bowel regimen 3. Multiple Hernias: Left Lat abdominal wall, periumbilical, hiatal, Right inguina -as above -monitor 4. Overweight -eventual weight loss 5. Hypocalcemia with hypoalbuminemia:: likely nutritional; improving -nutrition optimization 6. Anemia: likely dilutional; h/h stable -monitor and transfuse prn Patient seen and examined in collaboration with Dr. Dave Saldivar. Thank you. Problems: Subjective 24 Hr Interval Summary Feeling well. No abdominal pain or discomfort. No fevers/tachycardia, sob, cough , n/v/d/dysuria. +bowel function. Tolerating full liquids Exam/Review of Systems Vital Signs Vitals Vital Signs Date Time Temp Pulse Resp B/P Pulse Ox O2 Delivery O2 Flow Rate FiO2 01/16/17 08:18 98.5 67 20 142/68 97 01/14/17 20:26 Room Air Intake and Output 01/15/17 01/15/17 01/16/17 15:00 23:00 07:00 Intake Total 50 ml 1340 ml 7412 ml Output Total 800 ml Balance 50 ml 540 ml 7412 ml Exam Free Text/Dictation Constitutional: alert, oriented Psych: anxiety improved Head: atraumatic, normocephalic Eyes: nl lids, nl sclera ENMT: mucosa pink and moist, nl nasal mucosa & septum Neck: non-tender, supple Respiratory: normal air movement, No congested cough Cardiovascular: nl pulses, regular rate and rhythm Gastrointestinal: bowel sounds, nondistended, other (multiple hernias ( umbilical, left abdominal wall), surgical scars, non tender Genitourinary - Male: other Musculoskeletal: nl extremities to inspection Extremities: normal pulses, No edema Neurological: nl mental status, nl speech, nl strength Skin: No ecchymosis Results Result Diagram: 01/16/17 0440 01/16/17 0430 ANNA CHANG NP Jan 16, 2017 10:13
--- NOTE | 2017-01-16 15:14 | PN ---
Date/Time of Note Date/Time of Note DATE: 01/16/17 TIME: 15:10 Assessment/Plan VTE Prophylaxis VTE Prophylaxis Intervention: SCD's Lines/Catheters IV [facility]ter Type (from [facility]): Peripheral IV Urinary Cath still in place: No Assessment/Plan Assessment/Plan 71-year-old male with: 1. Colitis, descending and proximal sigmoid colon, suspicion for left radha- abdomen perforated viscus. Resolved clinically. Stable for discharge per general surgery. Patient clinically stable for discharge today, he has tolerated a soft diet, given the finding of colitis he will be discharged on oral antibiotics for 8 more days. Patient remains stable. Appreciate assistance from general surgery. Patient to follow-up with outpatient primary care physician. Prophylaxis: SCDs for DVT prophylaxis, Protonix for GI prophylaxis. Disposition: Discharge home on soft diet, advance as tolerated to regular over the next 3 days. Oral antibiotics given also. Follow-up with PCP in 1 week. Subjective 24 Hr Interval Summary Free Text/Dictation Patient doing well today, he has tolerated a soft diet, no pain, bowel movements recorded with no signs of constipation. He will be discharged home today on soft diet to advance as tolerated to regular as an outpatient. So he will be given oral antibiotics. Exam/Review of Systems Vital Signs Vitals Vital Signs Date Time Temp Pulse Resp B/P Pulse Ox O2 Delivery O2 Flow Rate FiO2 01/16/17 08:18 98.5 67 20 142/68 97 01/14/17 20:26 Room Air Intake and Output 01/15/17 01/15/17 01/16/17 15:00 23:00 07:00 Intake Total 50 ml 1340 ml 7412 ml Output Total 800 ml Balance 50 ml 540 ml 7412 ml Exam Constitutional: alert, oriented, well developed Respiratory: clear to auscultation, normal air movement Cardiovascular: nl pulses, regular rate and rhythm Gastrointestinal: non-tender, soft Musculoskeletal: nl extremities to inspection Extremities: normal pulses, other (No edema, clubbing or cyanosis) Neurological: RE[employer] ALKYLATION II-XII intact, nl mental status, nl speech, nl strength Results Result Diagram: 01/16/17 0440 01/16/17 0430 Results 24 hrs Laboratory Tests Test 01/16/17 04:30 01/16/17 04:40 Sodium Level 139 Potassium Level 3.6 Chloride Level 102 Carbon Dioxide Level 25 Anion Gap 16 Blood Urea Nitrogen 6 L Creatinine 0.54 L Glucose Level 97 Calcium Level 8.3 L Phosphorus Level 3.2 Magnesium Level 1.9 Total Bilirubin 0.4 Direct Bilirubin 0.00 Indirect Bilirubin 0.4 Aspartate Amino Transf (AST/SGOT) 27 Alanine Aminotransferase (ALT/SGPT) 31 Alkaline Phosphatase 59 Total Protein 6.5 Albumin 3.1 L Globulin 3.40 H Albumin/Globulin Ratio 0.91 White Blood Count 5.5 Red Blood Count 5.22 Hemoglobin 13.6 L Hematocrit 41.2 L Mean Corpuscular Volume 78.9 L Mean Corpuscular Hemoglobin 26.1 L Mean Corpuscular Hemoglobin Concent 33.0 Red Cell Distribution Width 13.8 Platelet Count 236 Mean Platelet Volume 10.0 Neutrophils % 41.9 Lymphocytes % 32.3 Monocytes % 15.1 H Eosinophils % 8.5 H Basophils % 0.4 Nucleated Red Blood Cells % 0.0 Neutrophils # (Manual) 2.3 Lymphocytes # 1.8 Monocytes # 0.8 Eosinophils # 0.5 Basophils # 0.0 Nucleated Red Blood Cells # 0.0 Medications Medications Current Medications Sodium Chloride (NS) 1,000 ml @ 100 mls/hr Q10H IV Last administered on 23:58; Admin Dose 100 MLS/HR; Start 01/10/17 at 14:44 Ondansetron HCl (Zofran Inj) 4 mg Q6H PRN IV NAUSEA AND/OR VOMITING Last administered on 01/11/17 02:45; Admin Dose 4 MG; Start 01/10/17 at 15:00 Acetaminophen (Tylenol Tab) 650 mg Q6H PRN PO PAIN LEVEL 1-3 OR FEVER Last administered on 01/13/17 09:04; Admin Dose 650 MG; Start 01/10/17 at 15:00 Acetaminophen (Tylenol Supp) 650 mg Q6H PRN WI PAIN LEVEL 1-3 OR FEVER Last administered on 01/12/17 05:47; Admin Dose 650 MG; Start 01/10/17 at 15:00 Morphine Sulfate (morphine) 2 mg Q4H PRN IV SEVERE PAIN LEVEL 7-10 Last administered on 01/15/17 08:16; Admin Dose 2 MG; Start 01/10/17 at 15:00 Docusate Sodium (Colace) 100 mg Q12H PRN PO CONSTIPATION; Start 01/10/17 at 15: 00 Magnesium Hydroxide (Milk Of Mag) 30 ml DAILY PRN PO CONSTIPATION; Start at 15:00 Bisacodyl (Dulcolax Supp) 10 mg DAILY PRN [place] CONSTIPATION Last administered on 01/11/17 12:19; Admin Dose 10 MG; Start 01/10/17 at 15:00 Sodium Biphosphate/ Sodium Phosphate (Fleet Enema) 133 ml DAILY PRN [place] CONSTIPATION; Start 01/11/17 at 12:00 Famotidine 20 mg 20 mg BID IV Last administered on 01/16/17 09:12; Admin Dose 20 MG; Start 01/13/17 at 21:00 Meropenem/Sodium Chloride (Merrem 1 Gm/50 ml (Pmx)) 50 ml @ 100 mls/hr Q8 IVPB Last administered on 01/16/17 13:31; Admin Dose 100 MLS/HR; Start 01/15/17 at 14:00 MÓNICA OLGUIN Jan 16, 2017 15:14
--- NOTE | 2017-01-16 15:21 | PDOCDIS ---
Discharge Instructions CONDITION Patient Condition: Stable HOME CARE INSTRUCTIONS: Diet Instructions: RegularSpecial Diet: Soft dietYour diet recommendation is: Advance to regular diet in the next 3 days. ACTIVITY: Activity Restrictions: Slowly Increase Activity Rest between Activity Avoid heavy lifting Do not Drive Avoid Heavy Housework Bathing Restrictions: Shower FOLLOW UP/APPOINTMENTS Follow-up Plan Follow-up with primary care physician within 1 week. Referral to general surgery as an outpatient for multiple hernias (Left Lat abdominal wall, periumbilical, hiatal, Right inguina) MÓNICA OLGUIN Jan 16, 2017 15:21
[2017-01-16] MEDS ORDERED: METR500T PO (15:22)
[2017-01-16] MEDS ORDERED: POLY17PO6 PO (15:22)
[2017-01-16] MEDS ORDERED: DOCU-216 PO (15:22)
[2017-01-16] MEDS ORDERED: CIPR500T4 PO (15:22)
[2017-01-16] MEDS ORDERED: CIPROFLOXACIN 500 MG TAB PO SCH (18:00)
[2017-01-16] MEDS ORDERED: FAMOTIDINE 20 MG TAB PO SCH (21:00)
[2017-01-16] MEDS ORDERED: metroNIDAZOLE 500 MG TAB PO SCH (22:00)
[2017-01-17] MEDS ORDERED: POLYETHYLENE GLYCOL 17 GM PACKET PO SCH ×2 (09:00)
== END 2017-01-16 16:00 | disposition home or self-care (01) | DRG 391 ==
LOC: E/R 09:10 → MS1 13:57
PROVIDERS: ADMIT Internal Medicine; ATTEND Internal Medicine
DX: K52.9 Noninfective gastroenteritis and colitis, unspecified (principal); K63.1 Perforation of intestine (nontraumatic); E88.09 Other disorders of plasma-protein metabolism, not elsewhere classified; E83.42 Hypomagnesemia; E83.51 Hypocalcemia; K57.92 Diverticulitis of intestine, part unspecified, without perforation or abscess without bleeding; D64.9 Anemia, unspecified; K43.9 Ventral hernia without obstruction or gangrene; K44.9 Diaphragmatic hernia without obstruction or gangrene; K59.00 Constipation, unspecified; K40.90 Unilateral inguinal hernia, without obstruction or gangrene, not specified as recurrent; E66.3 Overweight; E87.6 Hypokalemia; E78.5 Hyperlipidemia, unspecified; Z68.29 Body mass index [BMI] 29.0-29.9, adult
CPT/HCPCS: 36415; 71010; 74177; 80048; 80053; 80061; 83605; 83690; 83735; 84100; 85025; 85610; 85730; 93005; 96374; 96375; C9113; J1170; J1335; J2185; J2270; J2405; J3475; J3480; J7030; J7050; Q9967